=== PATIENT | male | born 1965 | race Caucasian/White ===

== ENCOUNTER 2021-01-01 20:42 | Observation (INO) | payer OTHER, SELFPAY ==
--- NOTE | ~2021-01-01 | XR_ITS ---
EXAMINATION: XR retrograde pyelo w/stent BI EXAM DATE: 01/02/2021 08:20 INDICATION: Bilateral stent placement. Bilateral ureteral stones, obstructive nephropathy. TECHNIQUE: Fluoroscopy used during XR retrograde pyelo w/stent BI performed by Melisa Bowens, urologist. The radiologist Akhil Walter M.D. dictating this report of the image(s) available was n ot present for the procedure. Total fluoroscopic time of 643 seconds. The DAP for this procedure wa s 10,074 radcm2. A total of 8 images sent to PACS from the exam. FINDINGS: Right ureter was cannulated and injected, subsequent ureteral stent was placed. The left u reter was then cannulated and injected, stent placements ureter as well. There is mild to moderate le ft hydroureteronephrosis. Correlate with procedure note. IMPRESSION: Mild to moderate left hydronephrosis. Bilateral stents in position. Reviewed, dictated and finalized at location A.
--- NOTE | ~2021-01-01 | CT_ITS ---
EXAMINATION: CT abdomen pelvis wo con DATE: 01/01/2021 22:36 INDICATION: Prior nephrolithiasis presenting with right flank pain. TECHNIQUE: Computed tomography (CT) of the abdomen and pelvis was performed without intravenous contr ast. Automated exposure control and iterative reconstruction technique were employed. The dose-length product was 204.12 mGy-cm. COMPARISON: None FINDINGS: Mild dependent and discoid atelectasis in the bilateral lower lobes. Heart size is normal. No pericar dial or pleural effusion. Mild diffuse hepatic steatosis. Gallbladder, spleen, pancreas and bilateral adrenal glands are normal. 6 x 8 mm obstructing stone in the mid left ureter resulting in mild to moderate left hydroureteroneph rosis. There is also a 2 mm likely partially obstructing stone in the distalmost right ureter within 1 cm of the ureterovesicular junction with mild right hydroureteronephrosis. Additional 2 mm stone at the interpolar region of the right kidney. 3.2 cm exophytic cyst arising posteriorly from the upper pole of the left kidney. Asymmetric mild right perinephric and periureteral stranding. There is mild colonic diverticulosis with a sigmoid predominance. There is no adjacent inflammatory change to suggest diverticulitis. Small bowel and appendix are normal. Bladder is normal. No free in traperitoneal gas or fluid. No pathologically enlarged abdominal or pelvic lymphadenopathy. Mild thor acolumbar spondylosis. Anterior bridging osteophytes at the bilateral sacral iliac joints. Mild bilat eral hip osteoarthritis. IMPRESSION: 1. Bilateral nephrolithiasis with at least partially obstructing 2 mm stone at the distalmost right u reter with mild right hydroureteronephrosis and larger obstructing 6 x 8 mm mid left ureteral stone w ith moderate left hydroureteronephrosis. Reviewed, dictated and finalized at location A. IMPRESSION: 1. Bilateral nephrolithiasis with at least partially obstructing 2 mm stone at the distalmost right ureter with mild right hydroureteronephrosis and larger ob structing 6 x 8 mm mid left ureteral stone with moderate left hydroureteronephr osis.
[2021-01-01 21:01] VITALS: BP 157/93; PULSE 68; RESP 18; O2SAT 96
[2021-01-01 22:02] VITALS: BP 145/95; PULSE 65; RESP 18; O2SAT 98
--- NOTE | 2021-01-01 22:20 | ED.GENADULT ---
HPI - General Adult General Chief complaint: Abdominal Pain Stated complaint: right flank pain Time Seen by Provider: 01/01/21 21:59 History of Present Illness HPI narrative: Patient 55-year-old gentleman who presents the emergency department chief complaint of right-sided flank pain. The patient states over the last several days he has been having pain in his right flank area patient states he believes is passed 2 kidney stones at home over the last several days and states that now is still having pain pain on the right side patient states that he had no vomiting reports that currently the pain is about a 2 but it was 6 urinate earlier today patient reports that the pain is not improved by anything reports its worsened by itself without any worsening affect. Related Data Allergies Allergy/AdvReac Type Severity Reaction Status Date / Time No Known Allergies Allergy Verified 01/01/21 22:20 Review of Systems Review of Systems: Narrative: A 10 system review of systems was completed on the patient and is negative except for what is stated in the HPI. Nursing and ancillary documentation was reviewed. PMFSH Social History Social History Gender identity (if verbalized by the patient): Male Comments Past medical history significant for kidney stones Social history patient denies illicit drug Exam Narrative: Exam Narrative: GENERAL: Well-appearing, well-nourished, and in no acute distress. HEAD: Normocephalic, atraumatic. EYES: PERRLA and EOMI. ENT: Nares clear, no rhinorrhea or epistaxis. Mucous membranes moist. NECK: Supple. CHEST: Clear to auscultation. No respiratory distress. HEART: Regular rate and rhythm. No murmur heard. Normal peripheral pulses. ABDOMEN: Soft, nontender, nondistended, normal active bowel sounds. EXTREMITIES: Normal range of motion. No edema. SKIN: Warm, dry, no rash. NEURO: No focal deficits. Alert and oriented x3. PSYCH: Normal mood and affect. Course Vital Signs Vital signs: Vital Signs Pulse Rate 68 01/01/21 21:01 Respiratory Rate 18 01/01/21 21:01 Blood Pressure 157/93 H 01/01/21 21:01 Pulse Oximetry 96 01/01/21 21:01 Pulse Rate 65 01/01/21 22:02 Respiratory Rate 18 01/01/21 22:02 Blood Pressure 145/95 H 01/01/21 22:02 Pulse Oximetry 98 01/01/21 22:02 Medical Decision Making Vital Signs Vital Signs: Vital Signs Pulse Rate 68 01/01/21 21:01 Respiratory Rate 18 01/01/21 21:01 Blood Pressure 157/93 H 01/01/21 21:01 Pulse Oximetry 96 01/01/21 21:01 Pulse Rate 65 01/01/21 22:02 Respiratory Rate 18 01/01/21 22:02 Blood Pressure 145/95 H 01/01/21 22:02 Pulse Oximetry 98 01/01/21 22:02 Lab Data Result diagrams: 01/01/21 22:18 01/01/21 22:18 Labs: Lab Results 01/01/21 01/01/21 01/01/21 Range/Units 22:18 22:18 22:18 WBC 17.0 H (4.5-10.0) K/mm3 RBC 4.82 (4.6-6.20) M/mm3 Hgb 15.7 (14.0-18.0) g/dL Hct 45.2 (42.0-52.0) % MCV 93.8 (80-100) fl MCH 32.6 (26-34) pg MCHC 34.7 (32-36) g/dl RDW 11.9 (11.5-14.5) % Plt Count 195 (150-375) k/mm3 MPV 10.3 (7.4-10.4) fl Immature Gran % (Auto) 0.4 (0-0.5) % Neut % (Auto) 72.8 (45.5-73.1) % Lymph % (Auto) 14.3 L (18.3-44.2) % [place] % (Auto) 11.7 H (2.6-8.5) % Eos % (Auto) 0.5 (0-4.4) % Baso % (Auto) 0.3 (0.2-1.2) % Lymph # (Auto) 2.44 (0.9-3.2) K/mm3 [place]ard # (Auto) 2.0 H (0.1-0.6) K/mm3 Eos # (Auto) 0.1 (0-0.3) K/mm3 Baso # (Auto) 0.1 (0.0-0.1) K/mm3 Abs Immat Gran (auto) 0.06 H (0.00-0.031) K/mm3 Absolute Neuts (auto) 12.4 H (1.3-6.7) K/mm3 Absolute Nucleated RBC 0.0 (0.0-0.012) K/mm3 Nucleated RBC % 0.0 (0.0-0.2) % Sodium 139 (137-145) mmol/L Potassium 4.0 (3.4-5.0) mmol/L Chloride 103 (98-107) mmol/L Carbon Dioxide 28 (22-30) mmol/L Anion Gap 8
[2021-01-01] MEDS: SODIUM CHLORIDE 0.9% IV 1,000 ML 999 ML IV CONT (22:21)
[2021-01-01] MEDS: ONDANSETRON INJ 4 MG/2 ML VIAL IV PUSH (22:21)
[2021-01-01] MEDS: MORPHINE SULFATE (*CRX) 4 MG/ML INJ IV PUSH (22:22)
[2021-01-01 22:24] LABS: Basophils Absolute Auto 0.1 K/mm3 (0.0-0.1); Basophils Percent Auto 0.3 % (0.2-1.2); Eosinophils Absolute Auto 0.1 K/mm3 (0-0.3); Eosinophils Percent Auto 0.5 % (0-4.4); Hematocrit 45.2 % (42.0-52.0); Hemoglobin 15.7 g/dL (14.0-18.0); Immature Granulocyte Absolute 0.06 K/mm3 (0.00-0.031); Immature Granulocyte Percent A 0.4 % (0-0.5); Lymphocytes Absolute Auto 2.44 K/mm3 (0.9-3.2); Lymphocytes Percent Auto 14.3 % (18.3-44.2); Mean Corpuscular HGB Conc 34.7 g/dl (32-36); Mean Corpuscular Hemoglobin 32.6 pg (26-34); Mean Corpuscular Volume 93.8 fl (80-100); Mean Platelet Volume 10.3 fl (7.4-10.4); Monocytes Percent Auto 11.7 % (2.6-8.5); Neutrophils Absolute Auto 12.4 K/mm3 (1.3-6.7); Neutrophils Percent Auto 72.8 % (45.5-73.1); Platelet Count Result 195 k/mm3 (150-375); Red Blood Count 4.82 M/mm3 (4.6-6.20); Red Cell Distribution Width 11.9 % (11.5-14.5)
[2021-01-01 22:28] LABS: Add Urine Microscopic? YES; Appearance Urine Clear (Clear); Bilirubin Urine Negative (Negative); Blood Urine 2+ (Negative); Color Urine Straw (Yellow); Glucose Urine UA Negative (Negative); Ketones Urine Negative (Negative); Leukocyte Esterase Ur Trace LEU/UL (Negative); Mucus Urine Rare /lpf; Nitrate Urine Negative (Negative); Protein Urine Negative (Negative); RBC Urine 0-2 /hpf (0-2); Specific Grav Ur 1.006 (1.001-1.035); Urobilinogen Urine Negative mg/dL (<2.0)
[2021-01-01 22:34] LABS: Alanine Aminotransferase 26 U/L (4-50); Albumin Level 4.2 g/dL (3.5-5.1); Alkaline Phosphatase 91 U/L (38-126); Anion Gap 8 mmol/L (8-16); Aspartate Amino Transferase 31 U/L (17-59); Bilirubin,Total 0.9 mg/dL (0.2-1.3); Blood Urea Nitrogen 16 mg/dL (9-20); Calcium 9.7 mg/dL (8.4-10.2); Carbon Dioxide 28 mmol/L (22-30); Chloride 103 mmol/L (98-107); Estimated CRCL calculation 32 ml/min; Estimated Glomerular Filt Rate 28; Glucose 121 mg/dL (75-110); Lipase 33 U/L (23-300); Sodium 139 mmol/L (137-145)
[2021-01-01] MEDS: HYDROmorphone HCL INJ (*CRX) 1 MG/ML SYR IV PUSH (23:21)
[2021-01-02] VITALS (17 sets, daily range): BP systolic 93–149; BP diastolic 53–87; PULSE 57–77; RESP 10–21; TEMP 35.8–36.8; O2SAT 93–100; BMI 31.8
--- NOTE | 2021-01-02 00:33 | PC.NURSE ---
Called report to Kanika PATEL on Medical. Was told that the room was being cleaned and RN will call back when room is ready.
--- NOTE | 2021-01-02 01:00 | ADMGEN ---
This patient, Tino Delgadillo, was admitted to 2 Medical Room 258-01 @ 0055. Patient/family oriented to hospital policies and general routines including ID bracelet, bed and alarms, visiting hours, pain management, procedures, bathroom and other care routines, personal items, smoking policy, room service/diet, and visiting hours. Information on how to activate the Rapid Response Team has been discussed. Patient/Family are encouraged to report perceived risks to care and to ask questions if they do not understand what they are told or what they should do.
[2021-01-02] MEDS: SODIUM CHLORIDE 0.9% IV 1,000 ML 125 ML IV CONT ×2 (01:07→13:18)
--- NOTE | 2021-01-02 01:22 | PM.IMHP ---
H&P: HPI History of Present Illness Date/Time: 01/02/21 01:22 Chief Complaint: Flank pain Narrative: This is a 55-year-old male with known significant past medical history patient presented to the emergency room after right flank pain for the last 2-3 days patient believes that he might have passed to a stones at home but this time the pain has been progressively getting worse over the period of the last day or so no fevers no rigors no chills no nausea no vomiting no diarrhea no melena no hematemesis no hematochezia no hematuria. Preliminary workup was significant for creatinine elevated at 2.[address] of abdomen and pelvis was significant for kidney stones with bilateral hydronephrosis with stones present in the ureters. Review of Systems Review of Systems: Narrative: Right flank pain Constitutional: Constitutional: Denies chills, Denies fever(s) and Denies malaise Eyes: Eyes: Denies change in vision ENT: Denies nasal congestion, Denies nasal discharge and Denies nasal obstruction Cardiovascular: Cardiovascular: Denies chest pain, Denies irregular heart rhythm, Denies radiating jaw, neck or arm pain, Denies palpitations, Denies dyspnea and Denies dyspnea on exertion Respiratory: Respiratory: Denies cough, Denies dyspnea and Denies wheezing Gastrointestinal: Gastrointestinal: Denies diarrhea and Denies vomiting Genitourinary: Genitourinary: Reports flank pain (Right-sided) Musculoskeletal: Musculoskeletal: Reports no additional musculoskeletal complaints Integumentary/Breasts: Skin/Breast: Reports system reviewed and no additional complaints, except as docu Neurologic: Denies focal weakness and Denies Sensory deficit (Neuro) Psychiatric: Psychiatric: Reports no additional psychiatric complaints Endocrine: Endocrine: Reports no additional endocrine complaints Hematologic/Lymphatic: Hematologic/Lymphatic: Reports no additional hematologic/lymphatic complaints Allergic/Immunologic: Allergic/Immunologic: Reports no additional allergic/immunologic complaints [facility] Family History Family History (Updated 01/02/21 @ 01:04 by Susie Caban RN) Unknown Unknown family medical history Social History Social History Smoking status: Never smoker Alcohol intake: current Drinks per week: 1 Substance use: never Substance use type: does not use Gender identity (if verbalized by the patient): Male Spiritual care concerns: No Meds Home Medications and Allergies Home Medications Medication Instructions Recorded Confirmed Type No Home Medications 01/02/21 01/02/21 History Allergies Allergy/AdvReac Type Severity Reaction Status Date / Time No Known Allergies Allergy Verified 01/01/21 22:20 Vital Signs Vital Signs - 24 hr 01/01/21 21:01 01/01/21 22:02 01/02/21 00:13 Temperature Pulse Rate 68 65 61 Respiratory Rate 18 18 18 Blood Pressure 157/93 H 145/95 H 149/87 H Pulse Oximetry 96 98 94 01/02/21 00:50 01/02/21 01:02 Temperature 96.4 F L Pulse Rate 63 64 Respiratory Rate 16 16 Blood Pressure 124/78 Pulse Oximetry 97 95 Exam Narrative: Exam Narrative: Sitting in [facility] Const: General: comfortable, no acute distress, well developed, alert, awake, well groomed and other (Well-appearing) Nutritional Appearance: average body habitus Orientation/consciousness: patient oriented x3 HENMT: Head: normal to inspection, normocephalic and atraumatic Ears: hearing grossly normal bilaterally General nose exam: Normal external nose present Face and sinus: normal facial exam Mouth: Yes Normal oral and palatal mucosa present Eyes: General: appearance normal, both eyes and all related structures Sclera: sclerae normal Pupils: Equal, round and reactive pupils present EOM: EOMs intact bilaterally Neck: Neck: full ROM, no lymphadenopathy and no JVD Thyroid: thyroid normal Lymphatic: no lymphadenopathy noted Resp: Effo
[2021-01-02] MEDS: HYDROmorphone HCL INJ (*CRX) 1 MG/ML SYR IV PUSH (05:46)
[2021-01-02 05:48] LABS: Basophils Percent Auto 0.1 % (0.2-1.2); Eosinophils Percent Auto 0.1 % (0-4.4); Hematocrit 41.7 % (42.0-52.0); Hemoglobin 14.3 g/dL (14.0-18.0); Immature Granulocyte Absolute 0.07 K/mm3 (0.00-0.031); Immature Granulocyte Percent A 0.5 % (0-0.5); Lymphocytes Absolute Auto 1.92 K/mm3 (0.9-3.2); Lymphocytes Percent Auto 12.4 % (18.3-44.2); Mean Corpuscular HGB Conc 34.3 g/dl (32-36); Mean Corpuscular Hemoglobin 32.5 pg (26-34); Mean Corpuscular Volume 94.8 fl (80-100); Mean Platelet Volume 10.3 fl (7.4-10.4); Monocytes Absolute Auto 1.7 K/mm3 (0.1-0.6); Monocytes Percent Auto 10.8 % (2.6-8.5); Neutrophils Absolute Auto 11.8 K/mm3 (1.3-6.7); Neutrophils Percent Auto 76.1 % (45.5-73.1); Platelet Count Result 190 k/mm3 (150-375); Red Cell Distribution Width 11.9 % (11.5-14.5); White Blood Count 15.5 K/mm3 (4.5-10.0)
[2021-01-02 05:59] LABS: Anion Gap 6 mmol/L (8-16); Blood Urea Nitrogen 15 mg/dL (9-20); Calcium 8.8 mg/dL (8.4-10.2); Carbon Dioxide 28 mmol/L (22-30); Chloride 106 mmol/L (98-107); Estimated CRCL calculation 34 ml/min; Estimated Glomerular Filt Rate 30; Glucose 128 mg/dL (75-110); Potassium 4.4 mmol/L (3.4-5.0); Sodium 140 mmol/L (137-145)
--- NOTE | 2021-01-02 06:37 | WPDANESEPP ---
Anes - Eval Pre Procedure Procedure: Cystoscopy w/ stents placement Date/Time: 01/02/21 06:37 Surgeon: Elena Preop Diagnosis: Bilateral hydronephrosis Pre Op Diagnosis: Bilateral Obstructing Kidney Stones,Acute Kidn Inj Patient Data Age: 55 Gender: M Height: 1.68 m Weight: 89.4 kg Last Vital Signs Temp 35.9 C L 01/02/21 05:43 Pulse 73 01/02/21 05:43 Resp 16 01/02/21 05:43 BP 132/78 01/02/21 05:43 Pulse Ox 96 01/02/21 05:43 Allergies Allergy/AdvReac Type Severity Reaction Status Date / Time No Known Allergies Allergy Verified 01/01/21 22:20 Home Medications Medication Instructions Recorded Confirmed Type No Home Medications 01/02/21 01/02/21 History Laboratory Tests 01/01/21 01/01/21 01/01/21 22:18 22:18 22:18 WBC 17.0 K/mm3 H K/mm3 (4.5-10.0) RBC 4.82 M/mm3 M/mm3 (4.6-6.20) Hgb 15.7 g/dL g/dL (14.0-18.0) Hct 45.2 % % (42.0-52.0) MCV 93.8 fl fl (80-100) MCH 32.6 pg pg (26-34) MCHC 34.7 g/dl g/dl (32-36) RDW 11.9 % % (11.5-14.5) Plt Count 195 k/mm3 k/mm3 (150-375) MPV 10.3 fl fl (7.4-10.4) Immature Gran % (Auto) 0.4 % % (0-0.5) Neut % (Auto) 72.8 % % (45.5-73.1) Lymph % (Auto) 14.3 % L % (18.3-44.2) Snyder % (Auto) 11.7 % H % (2.6-8.5) Eos % (Auto) 0.5 % % (0-4.4) Baso % (Auto) 0.3 % % (0.2-1.2) Lymph # (Auto) 2.44 K/mm3 K/mm3 (0.9-3.2) Snyder # (Auto) 2.0 K/mm3 H K/mm3 (0.1-0.6) Eos # (Auto) 0.1 K/mm3 K/mm3 (0-0.3) Baso # (Auto) 0.1 K/mm3 K/mm3 (0.0-0.1) Abs Immat Gran (auto) 0.06 K/mm3 H K/mm3 (0.00-0.031) Absolute Neuts (auto) 12.4 K/mm3 H K/mm3 (1.3-6.7) Absolute Nucleated RBC 0.0 K/mm3 K/mm3 (0.0-0.012) Nucleated RBC % 0.0 % % (0.0-0.2) Sodium 139 mmol/L mmol/L (137-145) Potassium 4.0 mmol/L mmol/L (3.4-5.0) Chloride 103 mmol/L mmol/L (98-107) Carbon Dioxide 28 mmol/L mmol/L (22-30) Anion Gap 8 mmol/L mmol/L (8-16) BUN 16 mg/dL mg/dL (9-20) Creatinine 2.40 mg/dL H mg/dL (0.7-1.3) Estim Creat Clear Calc 32 ml/min ml/min Estimated GFR 28 L (59 - ) Glucose 121 mg/dL H mg/dL (75-110) Calcium 9.7 mg/dL mg/dL (8.4-10.2) Total Bilirubin 0.9 mg/dL mg/dL (0.2-1.3) AST 31 U/L U/L (17-59) ALT 26 U/L U/L (4-50) Alkaline Phosphatase 91 U/L U/L (38-126) Total Protein 8.0 g/dL g/dL (6.3-8.2) Albumin 4.2 g/dL g/dL (3.5-5.1) Lipase 33 U/L U/L (23-300) Urine Color Straw (Yellow) Urine Appearance Clear (Clear) Urine pH 6.0 (5.0-9.0) Ur Specific [place] 1.006 (1.001-1.035) Urine Protein Negative mg/dL mg/dL (Negative) Urine Glucose (UA) Negative mg/dL mg/dL (Negative) Urine Ketones Negative mg/dL mg/dL (Negative) Ur Blood (Man) 2+ H (Negative) Urine Nitrate Negative (Negative) Urine Bilirubin Negative (Negative) Urine Urobilinogen Negative mg/dL mg/dL (<2.0) Leukocyte Esterase Rfl Trace KENYETTA/UL H KENYETTA/UL (Negative) Urine RBC 0-2 /hpf /hpf (0-2) Urine WBC 7-9 /hpf H /hpf Urine Mucus Rare /lpf /lpf 01/02/21 01/02/21 05:34 05:34 WBC 15.5 K/mm3 H K/mm3 (4.5-10.0) RBC 4.40 M/mm3 L M/mm3 (4.6-6.20) Hgb 14.3 g/dL g/dL (14.0-18.0) Hct 41.7 % L % (42.0-52.0) MCV 94.8 fl fl (80-100) MCH 32.5 pg pg (26-34) MCHC 34.3 g/dl g/dl (32-36) RDW 11.9 % % (11.5-14.5) Plt Count 190 k/mm3 k/mm3 (150-375) MPV 10.3 fl fl (7.4-10.4) Immature Gran % (Auto) 0.5
--- NOTE | 2021-01-02 07:22 | WPDURCON ---
Assessment and Plan Assessment and plan (1) Bilateral kidney stones: Code(s): N20.0 - Calculus of kidney Status: Acute Assessment and Plan: Bilateral ureter stone s with CHRISTEN plan for cystoscopy, b/l RPG and bl stent placement. risks, benefits, alternatives, nature of procedure and potential complications discussed. present risks including but not limited to bleeding, infection, trauma to surrounding/adjacent structures, damage to urethra, bladder , ureters. The side effects and temporary nature of the stents were emphasized including, irritative voiding symptoms, hematuria, pain similar to stone pain, and the fact we are not treating the stones today, and he will need addtional procedure to treat stones, and the risks of anesthesia, including but not limited to DVT, PE, CA stroke and siabiltiy. We discussed possible PCN by IR, and need for additional procedures to remove stents . he and verbalized understanding and agreeable to proceed all ? answered , they asked pertinent questions. (2) Acute kidney injury: Code(s): N17.9 - Acute kidney failure, unspecified Status: Acute Assessment and Plan: likely due to b/l obstruction follow serial Cr Urology Consult Note HPI Date Seen: 01/02/21 Requesting Physician: Maria Isabel Camacho PA-C Primary Care Provider: Herson Sanchez, ISABELLA Consult Narrative Narrative: Tino Delgadillo is a 55 year old male pmhx of nephrolithiasis, admitted from ER with bilateral flank pain. He had some nausea, no fever or chills. he has passed a couple stones over the past year. he has never seen a urologist before. Pain is colicky, improved on narcotics. He had CT in ER which shows bilateral ureter stones, his Cr is elevated. Review of Systems Review of Systems: All systems reviewed & are unremarkable except as noted in HPI and below Constitutional: Constitutional: Reports as per HPI ENT: Reports Normal hearing present and Denies dry mouth Cardiovascular: Cardiovascular: Reports no additional cardiovascular complaints Respiratory: Respiratory: Reports no additional respiratory complaints Gastrointestinal: Gastrointestinal: Reports as per HPI Genitourinary: Genitourinary: Reports as per HPI Musculoskeletal: Musculoskeletal: Reports as per HPI Integumentary/Breasts: Skin/Breast: Reports system reviewed and no additional complaints, except as docu Neurologic: Reports system reviewed and no additional complaints, except as documented Endocrine: Endocrine: Reports no additional endocrine complaints Hematologic/Lymphatic: Hematologic/Lymphatic: Reports no additional hematologic/lymphatic complaints Allergic/Immunologic: Allergic/Immunologic: Reports no additional allergic/immunologic complaints PMF Family History Family History Unknown Unknown family medical history Social History Social History Smoking status: Never smoker Alcohol intake: current Drinks per week: 1 Substance use: never Substance use type: does not use Gender identity (if verbalized by the patient): Male Spiritual care concerns: No Meds Home Medications and Allergies Home Medications Medication Instructions Recorded Confirmed Type No Home Medications 01/02/21 01/02/21 History Allergies Allergy/AdvReac Type Severity Reaction Status Date / Time No Known Allergies Allergy Verified 01/01/21 22:20 Vital Signs Vital Signs - 24 hr 01/01/21 21:01 01/01/21 22:02 01/02/21 00:13 Temperature Pulse Rate 68 65 61 Respiratory Rate 18 18 18 Blood Pressure 157/93 H 145/95 H 149/87 H Pulse Oximetry 96 98 94 01/02/21 00:50 01/02/21 01:02 01/02/21 05:43 Temperature 35.8 C L 35.9 C L Pulse Rate 63 64 73 Respiratory Rate 16 16 16 Blood Pressure 124/78 132/78 Pulse Oximetry 97 95 96 Exam Const: General: cooperativ
--- NOTE | 2021-01-02 07:27 | P.PNAN_ITS ---
Anes - Eval Final PreProcedure Day of Procedure 01/02/21 07:27 Patient weight: obese Heart: regular rate and rhythm Lungs: clear to auscultation Airway: Mallampati scale class II Neurological: alert and oriented Last oral intake: >/= 8 hours ASA classification: II Emergent: no Anesthetic plan: proceed Anesthesia type and monitoring: general LMA and standard monitoring Informed Consent: The patient's anesthetic plan and its attendant risks and reid efits were discussed with the patient/family/POA. Questions were solicited and answers provided to the satisfaction of the patient/family/POA.
[2021-01-02] MEDS: LACTATED RINGERS 1,000 ML 30 ML IV CONT ×2 (07:30→08:20)
--- NOTE | 2021-01-02 07:30 | WPDHPUPDATE1 ---
History and Physical Update Update Date/Time: 01/02/21 07:30 History and Physical has been reviewed, including an updated exam of the patient. There are NO changes in the patient's condition. Risks, benefits, and alternatives have been discussed and questions answered. Patient agrees to proceed with procedure.
[2021-01-02] MEDS: LIDOCAINE HCL 2% GEL UROJET 10 ML PKG MUCOUS MEM (07:45)
--- NOTE | 2021-01-02 08:28 | W.PM.PROC2 ---
Procedure Note - Detailed Date of Procedure 01/02/21 Pre-op Diagnosis Bilateral Obstructing Kidney Stones,Acute Kidn Inj Post-op Diagnosis same Procedure Performed cystoscopy, bilateral retrograde pyelograms, bilateral ureteral stent placement Surgeon Angel Parker MD Anesthesia general Indications bilateral obstructive stones, CHRISTEN Findings impacted bilateral stones, left mid ureter, right distal ureter Description of Procedure Patient was brought back to the operating room, he was given general anesthesia via LMA. He was prepped and draped in standard surgical fashion in the dorsal lithotomy position with Betadine scrub to the genitalia. SCD boots were on and functional preoperatively. He is on IV rocephin on the floor and received last p.m. After appropriate timeout and appropriate radiologic films were displayed, a 22 Fr cystoscope was inserted into the urethra. The urethra was endoscopically normal, prostate was non obstructive. He had no tumor, lesion, mass or stone in the urinary bladder. He had single orthotopic placed ureteral orifices. No efflux was seen. I attempted to place a Bentson wire into the right u/o. The wire would not pass the stone in the distal ureter. An open ended 5 Fr catheter was placed, a retrograde pyelogram was performed to outline the ureter and collecting system, it showed mild hydronephrosis and hydroureter, i was able to pass an angle tipped glide wire past this and advanced the open ended catheter into the kidney, a hydronephrotic drip of urine was obtained. The angle tipped wire was removed and a Bentson wire was placed through the open ended catheter, the open ended catheter was remove and a 6 Fr variable length stent was placed Curl was seen in the kidney and in the urinary bladder. I then turned my attention to the left ureter. Stone was seen in the mid ureter on hazardous substances engineer fluoroscopy. Open ended catheter was placed in the left u/o. A wire was placed, it would not pass the stone, retrograde pyelogram was performed to outline the ureter and collecting system, it showed an impacted stone and moderate hydronephrosis and hydroureter. I used an angle tipped glidewire and was able to advance this into the upper pole. The 6 Fr open ended would not pass the impacted stone, therefore I used a 4.8 Fr variable length stent , I was able to navigate this into the renal pelvis, good curl was seen fluoroscopically in the kidney and both fluoroscopically and endoscopically in the bladder. The bladder was drained, all instruments and wires were removed. No immediate complications. I discussed findings and followup with family, all ? answered Implants right 6 Fr variable length stent, left 4.8 variable length stent Estimated Blood Loss 0 Urine Output 450 Drains No Packing No Pathology none sent Complications No immediate complications Condition stable Disposition floor
--- NOTE | 2021-01-02 08:51 | SUR.PHASEI ---
O2 removed at 0850.
--- NOTE | 2021-01-02 09:35 | SUR.PHASEI ---
Patient had the sensation like he had to pee but couldn't in the urinal while in PACU.
--- NOTE | 2021-01-02 13:16 | PM.IMPN ---
Progress Note: A&P Assessment and Plan (1) Bilateral kidney stones: Code(s): N20.0 - Calculus of kidney Status: Acute Assessment and Plan: CT a/p showed bilateral nephrolithiasis with partially obstructing 2 mm stone. He is s/p cystoscopy and bilateral ureteral stent placement today. Appreciate urology consultation He will need definitive stone management at a later date Analgesics and antiemetics available as needed for pain (2) Hydroureteronephrosis: Code(s): N13.30 - Unspecified hydronephrosis Status: Acute Assessment and Plan: Mild right hydroureteronephrosis and moderate left. Plan as above (3) Acute kidney injury: Code(s): N17.9 - Acute kidney failure, unspecified Status: Acute Assessment and Plan: Suspect obstructive etiology secondary to stone. Creatinine at presentation was 2.4 with minimal improvement today to 2.3 Continue gentle IV fluids Monitor renal function closely Anticipate improvement following stent placement (4) Abnormal urinalysis: Code(s): R82.90 - Unspecified abnormal findings in urine Status: Acute Assessment and Plan: Urinalysis abnormal upon presentation. He endorses flank pain with urination. Continue IV Ceftriaxone per urology recommendations Await results of urine culture Subjective Date/time seen: 01/02/21 13:16 Interval history: Date of service: 01/02/21 Tino Delgadillo is a 55-year-old male with no significant past medical history who has had kidney stones in the past and is seen in follow-up for bilateral nephrolithiasis. He is status post cystoscopy with bilateral ureteral stent placement. He tolerated the procedure well. He is feeling well at this time with no pain. He does note some right flank pain with urination. Denies dysuria. No hematuria, urgency, or frequency. No flank pain, groin pain, or back pain. He has been eating well. Denies nausea or vomiting. No fevers or chills. No shortness of breath, cough, or chest pain. Denies headaches. No dizziness or lightheadedness. He has no other concerns at this time. Review of Systems Review of Systems: All systems reviewed & are unremarkable except as noted in HPI and below Exam Narrative: Exam Narrative: Mr. Delgadillo is a well-nourished, well-appearing 55-year-old male who is lying semi-recumbent in bed. He appears comfortable and is in NARD. Neuro: awake, alert and oriented x4, speech clear, no focal neuro deficits noted HEENMT: normocephalic, atraumatic, EOMI, sclerae anicteric, moist oral mucosa, tongue midline, nares patent Neck: supple, no lymphadenopathy Respiratory: clear to auscultation bilaterally, nonlabored breathing Cardio: regular rate, regular rhythm with S1-S2 Abdomen: nondistended, normoactive bowel sounds, soft, nontender to palpation, no rigidity or guarding : No CVA tenderness Extremities: no edema, erythema, cyanosis, clubbing, or tenderness to palpation, DP pulses 2+ bilaterally Skin: no rashes or lesions, warm and dry Psych: appropriate mood and affect, judgment and insight intact Objective Data Vital Signs Vital Signs: Vital Signs - 24 hr 01/01/21 21:01 01/01/21 22:02 01/02/21 00:13 Temperature Pulse Rate 68 65 61 Respiratory Rate 18 18 18 Blood Pressure 157/93 H 145/95 H 149/87 H Pulse Oximetry 96 98 94 01/02/21 00:50 01/02/21 01:02 01/02/21 05:43 Temperature 96.4 F L 96.7 F L Pulse Rate 63 64 73 Respiratory Rate 16 16 16 Blood Pressure 124/78 132/78 Pulse Oximetry 97 95 96 01/02/21 08:19 01/02/21 08:32 01/02/21 08:45 Temperature 97.5 F L Pulse Rate 64 70 72 Respiratory Rate 10 L 17 13 Blood Pressure 93/56 L 93/63 L 115/72 Pulse Oximetry 94 99 100 01/02/21 09:00 01/02/21 09:15 01/02/21 09:30 Temperature Pulse Rate 66 66 57 L Respiratory Rate 21 H 12 12 Blood Pressure 113/74 114/75 113/77 Pulse Oximetry 94 94 94 01/02/21 10:00 01/02/21 10:15 0
--- NOTE | 2021-01-02 14:37 | PCRCNOTE ---
Spoke with Pt. about wearing CPAP; Pt. states he doesn't think he wants to wear one while he is here. Pt. states if he changes his mind he will have his bring in his nasal pillows so he can use them with our machine and let us know he wants to wear one.
[2021-01-03] MEDS: SODIUM CHLORIDE 0.9% IV 1,000 ML 85 ML IV CONT (00:42)
[2021-01-03 05:44] LABS: Hematocrit 37.7 % (42.0-52.0); Hemoglobin 12.9 g/dL (14.0-18.0); Mean Corpuscular HGB Conc 34.2 g/dl (32-36); Mean Corpuscular Hemoglobin 32.9 pg (26-34); Mean Corpuscular Volume 96.2 fl (80-100); Mean Platelet Volume 10.5 fl (7.4-10.4); Platelet Count Result 179 k/mm3 (150-375); Red Blood Count 3.92 M/mm3 (4.6-6.20); White Blood Count 13.6 K/mm3 (4.5-10.0)
[2021-01-03 06:00] VITALS: BP 114/67; PULSE 65; RESP 18; TEMP 36.6; O2SAT 97
[2021-01-03 06:03] LABS: Anion Gap 6 mmol/L (8-16); Blood Urea Nitrogen 18 mg/dL (9-20); Calcium 8.9 mg/dL (8.4-10.2); Carbon Dioxide 27 mmol/L (22-30); Chloride 108 mmol/L (98-107); Estimated CRCL calculation 55 ml/min; Estimated Glomerular Filt Rate 52; Glucose 116 mg/dL (75-110); Sodium 141 mmol/L (137-145)
--- NOTE | 2021-01-03 09:42 | WPDUROPN2 ---
Progress Note: A&P Assessment and Plan (1) Hydroureteronephrosis: Code(s): N13.30 - Unspecified hydronephrosis Status: Acute Assessment and Plan: s/p b/l stent placement he is clinically improving. ok to discharge today from perspective with close followup to schedule surgery (2) Bilateral kidney stones: Code(s): N20.0 - Calculus of kidney Status: Acute Assessment and Plan: he has b/l ureter stones, these will need treatment in next 1-2 weeks. likely with b/l ureteroscopy. I will have him followup with Dr Chauhan or Cuca next week to have these stones treated, likely with ureteroscopy. Pt understands the stents are temporary and need removal. He voiced understanding. (3) Acute kidney injury: Code(s): N17.9 - Acute kidney failure, unspecified Status: Acute Assessment and Plan: Cr improved to 1.4, unknown baseline Subjective Subjective Date/Time Seen: 01/03/21 09:42 NAOE. No fevers/chills/CP or SOB. Urine has cleared. Pain controlled. mild stent bother primarily on right side. wants to go home Review of Systems Constitutional: Constitutional: Reports no additional constitutional complaints, Denies chills and Denies fever(s) ENT: Reports system reviewed and no additional complaints, except as documented Cardiovascular: Cardiovascular: Reports no additional cardiovascular complaints Respiratory: Respiratory: Reports no additional respiratory complaints Gastrointestinal: Gastrointestinal: Reports no additional gastrointestinal complaints Genitourinary: Genitourinary: Reports as per HPI Musculoskeletal: Musculoskeletal: Reports as per HPI Integumentary/Breasts: Skin/Breast: Reports system reviewed and no additional complaints, except as docu Psychiatric: Psychiatric: Reports no additional psychiatric complaints Hematologic/Lymphatic: Hematologic/Lymphatic: Reports no additional hematologic/lymphatic complaints Exam Const: General: cooperative, healthy appearing, comfortable and no acute distress HENMT: Head: normocephalic and atraumatic Ears: hearing grossly normal bilaterally Eyes: General: appearance normal, both eyes and all related structures Resp: Effort & Inspection: normal respiratory effort, able to speak in complete sentences and no audible wheezes GI: Inspection: normal to inspection GI Palp: No Guarding due to palpation present (GI) : General: Yes no CVA tenderness Skin: General skin exam: normal color and no rashes or lesions noted Objective Data Vital Signs Vital Signs: Vital Signs - 24 hr 01/02/21 10:00 01/02/21 10:15 01/02/21 10:45 Temperature 35.9 C L 36.6 C 36.4 C Pulse Rate 57 L 64 68 Respiratory Rate 18 18 18 Blood Pressure 119/73 127/72 112/64 Pulse Oximetry 96 96 97 01/02/21 11:14 01/02/21 11:45 01/02/21 15:45 Temperature 36.8 C 36.3 C L Pulse Rate 77 63 Respiratory Rate 20 18 Blood Pressure 120/64 105/53 L Pulse Oximetry 93 95 96 01/02/21 21:16 01/03/21 06:00 Temperature 36.6 C 36.6 C Pulse Rate 68 65 Respiratory Rate 16 18 Blood Pressure 120/65 114/67 Pulse Oximetry 96 97 Intake/Output Intake/Output: Intake & Output 12/31/20 01/01/21 01/02/21 01/03/21 23:59 23:59 23:59 23:59 Intake Total 3230 1350 Output Total 900 Balance 2330 1350 Meds/Results Medications: Active Medications Generic Name Dose Route Start Last Admin Trade Name Freq PRN Reason Stop Dose Admin Hydrocodone Bitart/Acetaminophen 1 tab 01/02/21 12:53 Hydrocodone/Acetaminophen (*Crx) 10-325 Mg Tablet PO Q4H PRN Pain Rated 7-10 Sodium Chloride 1,000 mls @ 85 mls/hr 01/01/21 23:30 01/03/21 00:42 Normal Saline Iv IV CONT 85 mls/hr .[id number] HERMINIA Administration Ceftriaxone Sodium/Dextrose 1 gm in 50 mls @ 100 mls/hr 01/03/21 09:00 Rocephin 1 Gm/D5w 50 Ml IVPB Q24H HERMINIA Ondansetron HCl 4 mg 01/01/21 23:26 Ondansetron Inj 4 Mg/2 Ml Vial IV PUSH Q4H PRN
--- NOTE | 2021-01-03 12:55 | PM.DS ---
DS: Admitting Diagnosis Admitting Diagnosis Admitting Diagnosis: Nephrolithiasis DS: Discharge Diagnosis Discharge Diagnosis (1) Bilateral kidney stones: Code(s): N20.0 - Calculus of kidney Status: Acute Assessment and Plan: CT a/p showed bilateral nephrolithiasis with partially obstructing 2 mm stone. He underwent cystoscopy and bilateral ureteral stent placement on 01/02/[address] Parker. He will follow-up with urology as an outpatient for definitive stone management and stent removal. (2) Hydroureteronephrosis: Code(s): N13.30 - Unspecified hydronephrosis Status: Acute Assessment and Plan: Mild right hydroureteronephrosis and moderate left, secondary to obstructing stone. (3) Acute kidney injury: Code(s): N17.9 - Acute kidney failure, unspecified Status: Acute Assessment and Plan: Secondary to obstructive stone. Creatinine at presentation was 2.4 and improved down to 1.4 following stent placement. Anticipate further improvement back to baseline over the next several days. Encouraged adequate oral hydration. (4) Abnormal urinalysis: Code(s): R82.90 - Unspecified abnormal findings in urine Status: Acute Assessment and Plan: Urinalysis abnormal upon presentation. Urine culture was negative. No further treatment with antibiotics warranted. DS: Summary Hospital Course Reason for hospitalization: Kidney stone Hospital Course: Date of admission: 01/02/2021 Date of discharge: 01/03/2021 Tino Delgadillo is a 55-year-old male with a history of prior kidney stones who presented to the emergency department on 01/02/2021 2-3 days with progressive worsening. Upon presentation to the emergency department signs were stable, he was afebrile, white blood cell count was elevated at 17.0, additional CBC within normal limits, creatinine was 2.4 with additional electrolytes stable, urinalysis was abnormal, and CT a/p showed bilateral nephrolithiasis with at least partially obstructing 2 mm stone at the distalmost right ureter with mild right hydroureteronephrosis and larger obstructing 6 x 8 mm mid left ureteral stone with moderate left hydroureteronephrosis. He was admitted to the hospitalist service for further evaluation and management and was seen in consultation by Urology. Please see above for further details. His symptoms improved significantly following his stent placement. He was feeling much better and was felt to be stable for discharge home. He will follow-up with urology as an outpatient. We discussed worrisome signs and symptoms for which to return. He was discharged in hemodynamically stable condition on 01/03/2021 Status at Discharge Functional status at discharge: independent ambulation Overall status at discharge: patient is back to baseline Time Spent with Patient Time attestation: Total time spent providing and/or coordinating discharge services: 45 minutes Time spent: Greater than 30 minutes Exam Narrative: Exam Narrative: Mr. Delgadillo is a well-nourished, well-appearing 55-year-old male who is lying semi-recumbent in bed. He appears comfortable and is in NARD. Neuro: awake, alert and oriented x4, speech clear, no focal neuro deficits noted HEENMT: normocephalic, atraumatic, EOMI, sclerae anicteric, moist oral mucosa, tongue midline, nares patent Neck: supple, no lymphadenopathy Respiratory: clear to auscultation bilaterally, nonlabored breathing Cardio: regular rate, regular rhythm with S1-S2 Abdomen: nondistended, normoactive bowel sounds, soft, nontender to palpation, no rigidity or guarding : No CVA tenderness Skin: no rashes or lesions, warm and dry Psych: appropriate mood and affect, judgment and insight intact DS: Data Data Completed and Pending Labs on day of discharge: Labs from last 24 hours 01/03/21 01/03/21 05:19 05:19 WBC 13.6 H RBC 3.92 L Hgb 12.9 L Hct 37.7 L MCV 96.2 MCH 32.9 MC
== END 2021-01-03 12:45 | disposition home or self-care (01) ==
LOC: ANHED 23:26 → ANH2MED 01-02 00:02
PROVIDERS: Physician Assistant; Urology; Admitting Provider Internal Medicine; Emergency Provider Emergency Medicine; PCP Physician Assistant; Visit Provider Internal Medicine
PROC: (CPT 52352; principal; 2021-01-02 07:30)
DX: N20.2 Calculus of kidney with calculus of ureter (principal); N13.30 Unspecified hydronephrosis; N17.9 Acute kidney failure, unspecified
CPT/HCPCS: 52332; 36415; 74176; 74420; 80048; 80053; 81001; 83690; 85025; 85027; 87086; 96361; 96365; 96374; 96375; 99285; A9270; C1758; C1769; C2617; G0378; J0696; J1100; J1170; J2270; J2370; J2405; J2704; J3010; J7030; J7120; Q9966

== ENCOUNTER 2021-01-06 11:49 | Outpatient (CLI) | payer OTHER, SELFPAY ==
[2021-01-06 12:38] LABS: Prothrombin Time 13.3 Seconds (11.1-14.7)
[2021-01-06 12:39] LABS: Partial Thromboplastin Time 24.1 SECONDS (22.3-36.8)
[2021-01-06 12:41] LABS: EDCOVIDSCREEN Negative (Negative)
== END 2021-01-06 11:50 | disposition home or self-care (01) ==
PROVIDERS: PCP Physician Assistant; Visit Provider Urology
DX: N20.0 Calculus of kidney (principal); Z01.818 Encounter for other preprocedural examination
CPT/HCPCS: 36415; 85610; 85730; 87426; C9803

== ENCOUNTER 2021-01-08 00:19 | Day surgery (SDC) | payer OTHER, SELFPAY ==
[2021-01-06 12:30] VITALS: BMI 29.8
--- NOTE | 2021-01-07 07:18 | P.HP_ITS ---
History of Present Illness History of Present Illness Consent: Risks, benefits, and alternatives have been discussed and questions answered. Patient agrees to proceed with procedure. Chief complaint: bilateral ureteral kidney stones Narrative: Tino Delgadillo is a 55 year old male presented to the emergency department last week with bilateral ureteral calculi (small right distal ureteral calculus and a moderate-size left mid ureteral calculus ). As described in the prior consultation and OR report he underwent cystoscopy with bilateral ureteral stent placement. He now presents for definitive intervention. Review of Systems Cardiovascular: Cardiovascular: Denies chest pain, Denies lightheadedness, Denies palpitations and Denies dyspnea Respiratory: Respiratory: Denies dyspnea Gastrointestinal: Gastrointestinal: Denies diarrhea, Denies nausea and Denies vomiting Genitourinary: Genitourinary: Denies hematuria and Denies dysuria Endocrine: Endocrine: Denies palpitations PMFSH Family History Family History Unknown Unknown family medical history Social History Social History Smoking status: Never smoker Alcohol intake: current Drinks per week: 1 Substance use: never Substance use type: does not use Gender identity (if verbalized by the patient): Male Spiritual care concerns: No Meds Home Medications and Allergies Home Medications Medication Instructions Recorded Confirmed Type glucosamine-chondroitin [Osteo 1 tablet PO BID 01/06/21 01/06/21 History Bi-Flex] omega-3 fatty acids-fish oil [Fish 1 cap PO TID 01/06/21 01/06/21 History Oil] Allergies Allergy/AdvReac Type Severity Reaction Status Date / Time No Known Allergies Allergy Verified 01/06/21 12:16 Exam Const: General: no acute distress Resp: Effort & Inspection: normal respiratory effort GI: Inspection: non-distended GI Palp: No abdominal tenderness and No Guarding due to palpation present (GI) Auscultation: normal bowel sounds Assessment and Plan Assessment and plan (1) Bilateral ureteral calculi: Code(s): N20.1 - Calculus of ureter Status: Acute Assessment and Plan: * Cystoscopy, right ureteroscopy with stone extraction. * Left ureteral ESWL
--- NOTE | ~2021-01-08 | XR_ITS ---
XR abdomen/kub 1V 01/08/2021 07:50 Indication: Preop ESWL Procedure: KUB Comparison: No prior studies for comparison. Findings: There are bilateral internal ureteral stents in expected position. There is a small 2-3 mm right renal stone. There are pelvic phleboliths. Bowel gas pattern is nonobstructive. Impression: 1: Right nephrolithiasis. Reviewed, dictated and finalized at location A. Impression: 1: Right nephrolithiasis.
--- NOTE | 2021-01-08 06:40 | WPDHPUPDATE1 ---
History and Physical Update Update Date/Time: 01/08/21 06:40 History and Physical has been reviewed, including an updated exam of the patient. There are NO changes in the patient's condition. Risks, benefits, and alternatives have been discussed and questions answered. Patient agrees to proceed with procedure.
--- NOTE | 2021-01-08 07:42 | WPDANESEPPF ---
Anes - Initial Pre Proc Eval Procedure: Operation Date: 01/08/21 09:30 Proposed Procedures p Left Extracorporeal Shock Wave Lithotripsy - Andrea Thurman MD s Cystoscopy, Right Ureteroscopy, Right Ureteral Stone Extraction - Andrea Thurman MD Date/Time: 01/08/21 07:42 Surgeon: Andrea Thurman MD Pre Op Diagnosis: bilateral ureteral kidney stones Patient Data Age: 55 Gender: M Height: 1.68 m Weight: 83.95 kg Allergies Allergy/AdvReac Type Severity Reaction Status Date / Time No Known Allergies Allergy Verified 01/06/21 12:16 Home Medications Medication Instructions Recorded Confirmed Type glucosamine-chondroitin [Osteo 1 tablet PO BID 01/06/21 01/06/21 History Bi-Flex] omega-3 fatty acids-fish oil [Fish 1 cap PO TID 01/06/21 01/06/21 History Oil] Patient hx anesthesia problems: none Family hx anesthesia problems: none PMFSH Past Medical History Medical History (Updated 01/08/21 @ 07:43 by Nakul Mobley MD) Bilateral ureteral calculi IDA on CPAP Overweight (BMI 25.0-29.9) Family History Family History Unknown Unknown family medical history Social History Social History Smoking status: Never smoker Alcohol intake: current Drinks per week: 1 Substance use: never Substance use type: does not use Living arrangements: with family Gender identity (if verbalized by the patient): Male Spiritual care concerns: No Anes - Eval Final PreProcedure Day of Procedure 01/08/21 07:42 Patient weight: overweight Heart: regular rate and rhythm Lungs: clear to auscultation and normal air movement Airway: Mallampati scale class II Neurological: alert and oriented Last oral intake: >/= 8 hours ASA classification: II Emergent: no Anesthetic plan: proceed Anesthesia type and monitoring: general LMA Informed Consent: The patient's anesthetic plan and its attendant risks and benefits were discussed with the patient/family/POA. Questions were solicited and answers provided to the satisfaction of the patient/family/POA.
[2021-01-08 08:00] VITALS: BMI 29.7
[2021-01-08 08:01] VITALS: BP 128/84; PULSE 70; RESP 16; TEMP 36; O2SAT 100
[2021-01-08] MEDS: LACTATED RINGERS 1,000 ML 30 ML IV CONT ×2 (08:27→12:56)
--- NOTE | 2021-01-08 09:43 | SUR.PREOP ---
0835- Notified and patient procedure will be delayed, verbalized understanding.
--- NOTE | 2021-01-08 12:43 | P.OP_ITS ---
Procedure Note - Detailed Date of Procedure 01/08/21 Pre-op Diagnosis bilateral ureteral kidney stones Post-op Diagnosis same Procedure Performed 1. Cystoscopy, right ureteral stent removal, right ureteroscopy with stone extraction 2. Left ureteral ESWL Surgeon Andrea Thurman MD [employer] None Anesthesia general Indications Bilateral ureteral stones Findings 1. 2mm right distal ureteral stone 2. 8mm left mid-ureteral stone Description of Procedure patient brought to the operative suite where he was 1st positioned in a dorsal lithotomy position after the uneventful induction of a general LMA anesthetic. Cystoscopy is undertaken with a 19 F rigid cystoscope. Tip of the indwelling right ureteral stent is grasped minutes brought to the external urethral meatus. A 0.035 in glidewire was advanced into the right renal pelvis. Indwelling stent is removed in right ureteroscopy was undertaken with a short tapered semi- rigid ureteral scope. His small 2-3 mm right distal ureteral stone is identified and extracted with ease using a 1.9 F disposable escape basket. Because of the ease of this manipulation I opted not to replace the stent. He was repositioned in a supine position. Lithotripsy was undertaken to the 8 mm left mid ureteral calculus were a total of 2500 shocks were delivered at a power setting of 5. There appeared to be excellent fragmentation. I left the left ureteral stent in place. He was taken to the recovery room in good condition. Implants None Estimated Blood Loss 0 Drains No Packing No Pathology yes Complications No immediate complications Condition stable Disposition PACU
[2021-01-08 12:56] VITALS: BP 104/69; PULSE 64; RESP 10; TEMP 36.2; O2SAT 97
[2021-01-08 13:10] VITALS: BP 110/64; PULSE 65; RESP 12; O2SAT 100
[2021-01-08 13:25] VITALS: BP 113/75; PULSE 77; RESP 20; O2SAT 99
[2021-01-08 13:45] VITALS: BP 125/84; PULSE 68; RESP 16
[2021-01-08 14:20] VITALS: BP 128/81; PULSE 71; RESP 16
== END 2021-01-08 14:23 | disposition home or self-care (01) ==
PROVIDERS: PCP Physician Assistant; Visit Provider Urology
PROC: (CPT 50590; principal; 2021-01-08 09:30)
PROC: (CPT 52352; 2021-01-08 09:30)
DX: N20.1 Calculus of ureter (principal); G47.33 Obstructive sleep apnea (adult) (pediatric)
CPT/HCPCS: 50590; 52352; 36415; 74018; 82365; 85610; 85730; 87426; 88300; A9270; C1769; C9803; J1885; J2250; J2405; J2704; J3010; J7120

== ENCOUNTER 2021-01-18 11:11 | Outpatient (CLI) | payer OTHER, SELFPAY ==
--- NOTE | ~2021-01-18 | XR_ITS ---
EXAMINATION: XR abdomen/kub 1V INDICATION: Kidney stones TECHNIQUE: Supine view of the abdomen was obtained. COMPARISON: 01/08/2021 FINDINGS: The right internal ureteral stent has been removed. There is a left internal ureteral stent in expected position. A stone previously seen adjacent to the left internal ureteral stent is no marquis camila identified, likely reflecting interval lithotripsy. There is a punctate 2 mm right kidney stone. There are phleboliths of the left pelvis. The bowel gas pattern is normal. Mild hip osteoarthritis is noted. IMPRESSION: 1. Interval removal of the right internal ureteral stent and treatment of a left ureteral stone. Left internal ureteral stent in expected position. 2. Right nephrolithiasis. Reviewed, dictated and finalized at location B. IMPRESSION: 1. Interval removal of the right internal ureteral stent and treatment of a lef t ureteral stone. Left internal ureteral stent in expected position. 2. Right nephrolithiasis.
== END 2021-01-18 11:12 | disposition home or self-care (01) ==
LOC: ANHIMG 11:17
PROVIDERS: PCP Physician Assistant; Visit Provider Urology
DX: N20.0 Calculus of kidney (principal)
CPT/HCPCS: 74018

== ENCOUNTER 2022-10-01 19:54 | Observation (INO) | payer OTHER, SELFPAY ==
--- NOTE | ~2022-10-01 | CT_ITS ---
CT of the Abdomen and Pelvis: Indication: Abdominal pain Technique: 2.5 mm axial scans were obtained through the abdomen and pelvis following intravenous adm inistration of 100 COMPARISON: 01/01/2021 cc of Omnipaque 350. Dose reduction technique was used on this scan by [employer] automated exposure control and iterative reconstruction technique. The dose-length product (DLP) wa s 694.62 mGy-cm. Findings: Scans through the lung bases are unremarkable. The liver, spleen, pancreas, gallbladder, adrenals and kidneys are within normal limits. No evidence of aortic aneurysm. No lymphadenopathy. No bowel obstruction or bowel wall thickening. There is no evidence to suggest acute appendicitis. Images through the pelvis were performed. Urinary bladder unremarkable. Prostate gland and seminal ve sicles are unremarkable. No ascites. Impression: No significant abnormalities seen. Reviewed, dictated and finalized at [facility]. [facility] [employer] Impression: No significant abnormalities seen.
--- NOTE | ~2022-10-01 | US_ITS ---
Limited Abdominal Sonogram: Real-time sonographic imaging of the right upper quadrant was performed. Clinical History: Right upper quadrant pain Findings: The liver appears echogenic, with no evidence of mass lesion or bile duct dilatation. Main portal vein demonstrates normal direction of flow. The gallbladder is well distended, and appears no rmal with no evidence of gallstone or wall thickening. The common bile duct measures 4 mm. The visua lized pancreas, aorta, and IVC are unremarkable. Impression: Diffuse fatty infiltration of the liver. Reviewed, dictated and finalized at location [facility]. Impression: Diffuse fatty infiltration of the liver.
--- NOTE | ~2022-10-01 | MR_ITS ---
MRI of the abdomen: Clinical indication: Abdominal pain. Technique: Coronal SSFSE ARC, WATER:coronal LAVA-FLEX, Coronal 2D FIESTA FatSat, Axial SSFSE BH ARC, Axial 3D DualEcho BH, Axial SSFSE-IR, Axial DWI b=500, Axial 2D FIESTA FatSat, pre and dynamic postco ntrast Axial LAVA ARC, postcontrast Coronal In and Opposed phase LAVA FLEX.. Following intravenous ad ministration of 17 cc MultiHance gadolinium, T1-weighted fat-sat imaging was performed in the axial a nd coronal planes. Findings: Gallbladder is unremarkable. The common bile duct is normal in course and caliber. No filli ng defects are seen within the CBD. No evidence of intrahepatic biliary ductal dilatation. The pancre atic duct is normal in size. Liver, spleen, pancreas, and adrenal glands appear normal. Simple bilateral renal cysts are present. The aorta and the paraaortic regions appear normal. No abnormal postcontrast enhancement identified. Impression: No significant abnormality. Reviewed, dictated and finalized at [facility]. Impression: No significant abnormality.
[2022-10-01 19:59] VITALS: BP 139/94; PULSE 79; RESP 18; TEMP 37; O2SAT 97
[2022-10-01 20:38] LABS: Basophils Absolute Auto 0.1 K/mm3 (0.0-0.1); Basophils Percent Auto 0.7 % (0.2-1.2); Eosinophils Absolute Auto 0.2 K/mm3 (0-0.3); Hematocrit 47.1 % (42.0-52.0); Hemoglobin 16.3 g/dL (14.0-18.0); Immature Granulocyte Absolute 0.03 K/mm3 (0.00-0.031); Immature Granulocyte Percent A 0.4 % (0-0.5); Lymphocytes Absolute Auto 1.57 K/mm3 (0.9-3.2); Lymphocytes Percent Auto 18.7 % (18.3-44.2); Mean Corpuscular HGB Conc 34.6 g/dl (32-36); Mean Corpuscular Hemoglobin 32.9 pg (26-34); Mean Platelet Volume 10.3 fl (7.4-10.4); Monocytes Absolute Auto 1.2 K/mm3 (0.1-0.6); Monocytes Percent Auto 14.3 % (2.6-8.5); Neutrophils Absolute Auto 5.4 K/mm3 (1.3-6.7); Neutrophils Percent Auto 63.9 % (45.5-73.1); Platelet Count Result 189 k/mm3 (150-375); Red Blood Count 4.96 M/mm3 (4.6-6.20); White Blood Count 8.4 K/mm3 (4.5-10.0)
[2022-10-01 20:49] LABS: Alanine Aminotransferase 367 U/L (6-50); Albumin Level 4.6 g/dL (3.5-5.1); Alkaline Phosphatase 254 U/L (38-126); Anion Gap 7 mmol/L (8-16); Aspartate Amino Transferase 175 U/L (17-59); Bilirubin Direct 2.7 mg/dL (0-0.3); Bilirubin,Total 5.9 mg/dL (0.2-1.3); Blood Urea Nitrogen 18 mg/dL (9-20); Calcium 9.4 mg/dL (8.4-10.2); Carbon Dioxide 26 mmol/L (22-30); Chloride 104 mmol/L (98-107); Estimated CRCL calculation 81 ml/min; Estimated Glomerular Filt Rate > 60; Glucose 184 mg/dL (65-110); Lipase 265 U/L (23-300); Prothrombin Time 12.8 Seconds (11.1-14.7); Sodium 137 mmol/L (137-145)
[2022-10-01 20:50] LABS: Lactic Acid Reflex 0.8 mmol/L (0.7-2.0); Partial Thromboplastin Time 27.6 SECONDS (22.3-36.8)
--- NOTE | 2022-10-01 20:53 | PC.NURSE ---
Patient taken to CT at this time.
[2022-10-01 21:24] VITALS: BP 135/87; PULSE 66; RESP 17; TEMP 36.8; O2SAT 97
[2022-10-01 21:29] LABS: Appearance Urine Clear (Clear); Bacteria Urine None Seen /hpf; Bilirubin Urine 3+ (Negative); Blood Urine Negative (Negative); Calcium Oxalate Crystals Urine Present /hpf; Color Urine Dark Yellow (Yellow); Glucose Urine UA Negative (Negative); Ketones Urine Negative (Negative); Leukocyte Esterase Ur Trace LEU/UL (Negative); Need Manual Microscopic Reviewed; Nitrate Urine Negative (Negative); Non Pathogenic Casts 0-2; Protein Urine Negative (Negative); RBC Urine 0-2 /hpf (0-2); Specific Grav Ur 1.025 (1.001-1.035); Squamous Epithelial Cell Urine None seen /hpf (Few); WBC Urine 0-5 /hpf
--- NOTE | 2022-10-01 21:32 | ED.GENADULT ---
HPI - General Adult General Chief complaint: Unspecified Stated complaint: jaundice Time Seen by Provider: 10/01/22 20:17 Related Data Home Medications Medication Instructions Recorded Confirmed glucosamine-chondroitin 250 mg-200 1 tablet PO BID 01/06/21 01/08/21 mg tablet (Osteo Bi-Flex) omega-3 fatty acids-fish oil 360 1 cap PO TID 01/06/21 01/08/21 mg-1,200 mg capsule (Fish Oil) Allergies Allergy/AdvReac Type Severity Reaction Status Date / Time No Known Allergies Allergy Verified 10/01/22 20:21 [facility] Past Medical History Medical History (Updated 01/08/21 @ 07:43 by Nakul Mobley MD) Bilateral ureteral calculi IDA on CPAP Overweight (BMI 25.0-29.9) Family History Family History Unknown Unknown family medical history Social History Social History Smoking status: Never smoker Alcohol intake: current Drinks per week: 1 Substance use: never Substance use type: does not use Living arrangements: with family Gender identity (if verbalized by the patient): Male Spiritual care concerns: No Course Vital Signs Vital signs: Vital Signs Temperature 98.6 F 10/01/22 19:59 Pulse Rate 79 10/01/22 19:59 Respiratory Rate 18 10/01/22 19:59 Blood Pressure 139/94 H 10/01/22 19:59 Pulse Oximetry 97 10/01/22 19:59 Oxygen Delivery Room Air 10/01/22 19:59 Temperature 98.3 F 10/01/22 21:24 Pulse Rate 66 10/01/22 21:24 Respiratory Rate 17 10/01/22 21:24 Blood Pressure 135/87 10/01/22 21:24 Pulse Oximetry 97 10/01/22 21:24 Oxygen Delivery Room Air 10/01/22 19:59 Medical Decision Making Vital Signs Vital Signs: Vital Signs Temperature 98.6 F 10/01/22 19:59 Pulse Rate 79 10/01/22 19:59 Respiratory Rate 18 10/01/22 19:59 Blood Pressure 139/94 H 10/01/22 19:59 Pulse Oximetry 97 10/01/22 19:59 Oxygen Delivery Room Air 10/01/22 19:59 Temperature 98.3 F 10/01/22 21:24 Pulse Rate 66 10/01/22 21:24 Respiratory Rate 17 10/01/22 21:24 Blood Pressure 135/87 10/01/22 21:24 Pulse Oximetry 97 10/01/22 21:24 Oxygen Delivery Room Air 10/01/22 19:59 Lab Data 10/01/22 20:30 10/01/22 20:30 Labs: Lab Results 10/01/22 10/01/22 10/01/22 Range/Units 20:29 20:30 20:30 WBC 8.4 (4.5-10.0) K/mm3 RBC 4.96 (4.6-6.20) M/mm3 Hgb 16.3 D (14.0-18.0) g/dL Hct 47.1 (42.0-52.0) % MCV 95.0 (80-100) fl MCH 32.9 (26-34) pg MCHC 34.6 (32-36) g/dl RDW 13.0 (11.5-14.5) % Plt Count 189 (150-375) k/mm3 MPV 10.3 (7.4-10.4) fl Immature Gran % (Auto) 0.4 (0-0.5) % Neut % (Auto) 63.9 (45.5-73.1) % Lymph % (Auto) 18.7 (18.3-44.2) % Rich % (Auto) 14.3 H (2.6-8.5) % Eos % (Auto) 2.0 (0-4.4) % Baso % (Auto) 0.7 (0.2-1.2) % Lymph # (Auto) 1.57 (0.9-3.2) K/mm3 Rich # (Auto) 1.2 H (0.1-0.6) K/mm3 Eos # (Auto) 0.2 (0-0.3) K/mm3 Baso # (Auto) 0.1 (0.0-0.1) K/mm3 Abs Immat Gran (auto) 0.03 (0.00-0.031) K/mm3 Absolute Neuts (auto) 5.4 (1.3-6.7) K/mm3 Absolute Nucleated RBC 0.0 (0.0-0.012) K/mm3 Nucleated RBC % 0.0 (0.0-0.2) % PT 12.8 (11.1-14.7) Seconds INR 1.0 APTT 27.6 (22.3-36.8) SECONDS Sodium (137-145) mmol/L Potassium (3.4-5.0) mmol/L Chloride (98-107) mmol/L Carbon Dioxide (22-30) mmol/L Anion Gap (8-16) mmol/L BUN (9-20) mg/dL Creatinine (0.7-1.3) mg/dL Estim Creat Clear Calc ml/min Estimated GFR (59 - ) Glucose (65-110) mg/dL Lactic Acid (0.7-2.0) mmol/L Calcium (8.4-10.2) mg/dL Total Bilirubin (0.2-1.3) mg/dL Direct Bilirubin (0-0.3) mg/dL AST (17-59) U/L ALT (6-50) U/L Alkaline Phosphatase (38-126) U/L Total Protein (6.3-8.2) g/dL Albumin (3.5-5.1) g/dL Lipa
[2022-10-01 21:37] LABS: Add Urine Microscopic? YES
--- NOTE | 2022-10-01 22:01 | ED.GENADULT ---
HPI - General Adult General Chief complaint: Unspecified Stated complaint: jaundice Time Seen by Provider: 10/01/22 20:17 History of Present Illness HPI narrative: Is a 57-year-old gentleman who presents the emergency department with chief complaint of jaundice. Patient reports that over the last week he has noticed that his urine has been somewhat dark-colored had a little bit of generalized malaise feeling and reports that he has not really had abdominal pain. Patient's family noted that today he turned yellow and a made him come to the emergency department for evaluation. Patient denies fever denies abdominal pain. Patient reports no new medications, denies heavy alcohol use, denies IVDA Related Data Home Medications Medication Instructions Recorded Confirmed glucosamine-chondroitin 250 mg-200 1 tablet PO BID 01/06/21 01/08/21 mg tablet (Osteo Bi-Flex) omega-3 fatty acids-fish oil 360 1 cap PO TID 01/06/21 01/08/21 mg-1,200 mg capsule (Fish Oil) Allergies Allergy/AdvReac Type Severity Reaction Status Date / Time No Known Allergies Allergy Verified 10/01/22 20:21 Review of Systems Review of Systems: A 10 system review of systems was completed on the patient and is negative except for what is stated in the HPI. Nursing and ancillary documentation was reviewed. [facility] Past Medical History Medical History Bilateral ureteral calculi IDA on CPAP Overweight (BMI 25.0-29.9) Family History Family History Unknown Unknown family medical history Social History Social History Smoking status: Never smoker Alcohol intake: current Drinks per week: 1 Substance use: never Substance use type: does not use Living arrangements: with family Gender identity (if verbalized by the patient): Male Spiritual care concerns: No Exam Narrative: GENERAL: Well-appearing, well-nourished, and in no acute distress. HEAD: Normocephalic, atraumatic. EYES: PERRLA and EOMI. icteric ENT: Nares clear, no rhinorrhea or epistaxis. Mucous membranes moist. NECK: Supple. CHEST: Clear to auscultation. No respiratory distress. HEART: Regular rate and rhythm. No murmur heard. Normal peripheral pulses. ABDOMEN: Soft, nontender, nondistended, normal active bowel sounds. EXTREMITIES: Normal range of motion. No edema. SKIN: Warm, dry, no rash. Jaundice NEURO: No focal deficits. Alert and oriented x3. PSYCH: Normal mood and affect. Course Vital Signs Vital signs: Vital Signs Temperature 37.0 C 10/01/22 19:59 Pulse Rate 79 10/01/22 19:59 Respiratory Rate 18 10/01/22 19:59 Blood Pressure 139/94 H 10/01/22 19:59 Pulse Oximetry 97 10/01/22 19:59 Oxygen Delivery Room Air 10/01/22 19:59 Temperature 36.8 C 10/01/22 21:24 Pulse Rate 66 10/01/22 21:24 Respiratory Rate 17 10/01/22 21:24 Blood Pressure 135/87 10/01/22 21:24 Pulse Oximetry 97 10/01/22 21:24 Oxygen Delivery Room Air 10/01/22 19:59 Medical Decision Making [facility] Narrative Medical decision making narrative: Differential diagnosis includes biliary obstruction due to cholelithiasis, cholangitis, biliary or pancreatic neoplasm, hepatitis, cirrhosis Laboratory studies were obtained which showed a bilirubin of 5.9 and a direct bilirubin of 2.7. AST was mildly elevated at 175 and ALT was 367 alk phos is elevated at 254. The patient coagulation studies showed an INR of 1.0 CBC showed a hemoglobin of 16.3. The CT abdomen pelvis showed no acute abnormality Due to the patient having painless jaundice and no definitive cause. The case was discussed with the hospitalist patient was excepted to the hospitalist service right upper quadrant ultrasound will be ordered on the patient and GI will be consulted in the morning. Vital Signs Vital S
[2022-10-01 22:28] LABS: Hepatitis B Surface Antigen Negative (Negative)
[2022-10-01 22:34] LABS: HAV RESULT Negative (Negative); Hepatitis B Core IgM Result Negative (Negative)
[2022-10-01 22:41] VITALS: BP 129/89; PULSE 76; RESP 17; TEMP 36.8; O2SAT 97
[2022-10-01 22:46] LABS: Hepatitis C Virus Antibody Negative (Negative)
[2022-10-01 23:13] VITALS: BP 140/93; PULSE 74; RESP 18; TEMP 37.1; O2SAT 98
[2022-10-01 23:14] VITALS: BMI 30.7
--- NOTE | 2022-10-01 23:22 | ADMGEN ---
This patient, Tino Delgadillo, was admitted to [facility] Surg Room 303-01. Patient/family oriented to hospital policies and general routines including ID bracelet, bed and alarms, visiting hours, pain management, procedures, bathroom and other care routines, personal items, smoking policy, room service/diet, and visiting hours. Information on how to activate the Rapid Response Team has been discussed. Patient/Family are encouraged to report perceived risks to care and to ask questions if they do not understand what they are told or what they should do.
--- NOTE | 2022-10-01 23:36 | PM.IMHP ---
H&P: HPI History of Present Illness Date/Time: 10/01/22 23:36 Chief Complaint: Jaundice Narrative: This is a 57-year-old male with past medical history significant for obstructive sleep apnea on CPAP. Patient came to the emergency room after he noticed yellow discoloration of the sclera and skin. Patient has been in his usual state of health he denies any weight loss, nausea, vomiting, diarrhea, no fevers, no rigors no chills, no abdominal pain, no use of Tylenol, denies poor appetite has had dark colored urine. Preliminary workup was significant for CT of abdomen and pelvis was reported as: Findings:? Scans through the lung bases are unremarkable. The liver, spleen, pancreas, gallbladder, adrenals and kidneys are within normal limits.? No evidence of aortic aneurysm.? No lymphadenopathy. No bowel obstruction or bowel wall thickening. There is no evidence to suggest acute appendicitis. Images through the pelvis were performed. Urinary bladder unremarkable. Prostate gland and seminal vesicles are unremarkable. No ascites. Impression: No significant abnormalities seen. Review of Systems Review of Systems: Icterus Constitutional: Constitutional: Denies chills, Denies fatigue, Denies fever(s), Denies lethargy, Denies malaise, Denies night sweats, Reports poor appetite, Denies weakness and Denies weight loss Eyes: Eyes: Denies change in vision ENT: Denies dysphagia and Denies odynophagia Cardiovascular: Cardiovascular: Denies chest pain and Denies leg edema Respiratory: Respiratory: Denies chest congestion and Denies cough Gastrointestinal: Gastrointestinal: Denies abdominal pain, Denies dyspepsia, Denies heartburn, Denies diarrhea, Denies loose stools, Denies nausea and Denies vomiting Genitourinary: Genitourinary: Denies hematuria, Denies dysuria, Denies flank pain and Reports other (Dark color urine) Musculoskeletal: Musculoskeletal: Denies back pain and Denies muscle weakness Integumentary/Breasts: Skin/Breast: Denies rash Neurologic: Denies focal weakness and Denies Sensory deficit (Neuro) Psychiatric: Psychiatric: Reports no additional psychiatric complaints and Reports as per HPI Endocrine: Endocrine: Denies cold intolerance, Denies flushing, Denies heat intolerance, Denies polyphagia, Denies polydipsia and Denies palpitations Hematologic/Lymphatic: Hematologic/Lymphatic: Reports no additional hematologic/lymphatic complaints and Reports as per HPI Allergic/Immunologic: Allergic/Immunologic: Reports no additional allergic/immunologic complaints and Reports as per HPI [facility] Past Medical History Medical History Bilateral ureteral calculi IDA on CPAP Overweight (BMI 25.0-29.9) Family History Family History Unknown Unknown family medical history Social History Social History Smoking status: Never smoker Second hand tobacco smoke exposure: No Alcohol intake: current Drinks per week: 1 Substance use: never Substance use type: does not use Lack of Transportation: No Lack of Food: Never True Current Housing: I Have Housing Concerned About Future Housing: No Difficulty Paying Gas/Electric Bills: No Difficulty Paying for Meds: No Currently Unemployed: No Education: High School Diploma/GED Difficulty w/ Childcare or Family Care: No Living arrangements: with family Gender identity (if verbalized by the patient): Male Spiritual care concerns: No Meds Home Medications and Allergies Home Medications Medication Instructions Recorded Confirmed Type No Home Medications 10/01/22 10/01/22 History Allergies Allergy/AdvReac Type Severity Reaction Status Date / Time No Known Allergies Allergy Verified 10/01/22 20:21 Vital Signs Vital Signs - 24 hr 10/01/22 19:59
--- NOTE | 2022-10-02 01:58 | PC.NURSE ---
Daylight Savings Time For Daylight Savings Time Ending in the Fall - Clocks are moved back. For Daylight Savings Time Beginning in the Spring - Clocks are moved ahead. For [facility], the time of change occurs at 0200 hrs. Time is taken from the client server developer. This entry on the patient's chart recognizes the change in time reflected during documentation. Example: 2 entries for vital signs may be charted for 0200 hrs.
[2022-10-02 06:00] VITALS: BP 128/73; PULSE 83; RESP 18; TEMP 36.4; O2SAT 97
[2022-10-02 06:15] LABS: Basophils Absolute Auto 0.1 K/mm3 (0.0-0.1); Basophils Percent Auto 1.1 % (0.2-1.2); Eosinophils Absolute Auto 0.2 K/mm3 (0-0.3); Eosinophils Percent Auto 2.4 % (0-4.4); Hematocrit 43.9 % (42.0-52.0); Hemoglobin 15.4 g/dL (14.0-18.0); Immature Granulocyte Absolute 0.03 K/mm3 (0.00-0.031); Immature Granulocyte Percent A 0.4 % (0-0.5); Lymphocytes Absolute Auto 1.39 K/mm3 (0.9-3.2); Lymphocytes Percent Auto 18.3 % (18.3-44.2); Mean Corpuscular HGB Conc 35.1 g/dl (32-36); Mean Corpuscular Volume 94.2 fl (80-100); Mean Platelet Volume 10.5 fl (7.4-10.4); Monocytes Absolute Auto 1.3 K/mm3 (0.1-0.6); Monocytes Percent Auto 16.7 % (2.6-8.5); Neutrophils Absolute Auto 4.7 K/mm3 (1.3-6.7); Neutrophils Percent Auto 61.1 % (45.5-73.1); Platelet Count Result 176 k/mm3 (150-375); Red Blood Count 4.66 M/mm3 (4.6-6.20); White Blood Count 7.6 K/mm3 (4.5-10.0)
[2022-10-02 06:30] LABS: Alanine Aminotransferase 317 U/L (6-50); Albumin Level 4.2 g/dL (3.5-5.1); Alkaline Phosphatase 238 U/L (38-126); Anion Gap 6 mmol/L (8-16); Aspartate Amino Transferase 159 U/L (17-59); Bilirubin,Total 5.2 mg/dL (0.2-1.3); Blood Urea Nitrogen 17 mg/dL (9-20); Carbon Dioxide 27 mmol/L (22-30); Chloride 100 mmol/L (98-107); Estimated CRCL calculation 81 ml/min; Estimated Glomerular Filt Rate > 60; Glucose 197 mg/dL (65-110); Sodium 133 mmol/L (137-145)
--- NOTE | 2022-10-02 10:30 | WPDGICN ---
Assessment and Plan Assessment and plan (1) Elevated LFTs: Code(s): R79.89 - Other specified abnormal findings of blood chemistry Status: Acute Assessment and Plan: Patient found to have elevated LFTs. Prompted by the observation of jaundice. This is painless. CT scan is negative. Hepatitis serologies are negative. Plan is to obtain an MRCP to evaluate for biliary obstruction. Gallbladder ultrasound has been ordered as well. Pending results of the studies ERCP or referral for endoscopic ultrasound may be warranted. Painless jaundice raises the concern over possible pancreatic lesion. (2) Jaundice: Code(s): R17 - Unspecified jaundice Status: Acute GI Consult Note Consult date/time: 10/02/22 10:30 Reason for consult: Painless jaundice. HPI: Tino Delgadillo is a 57 year old male Presents with jaundice. Patient states that he was in his usual state of health until as noticed his eyes were yellow yesterday. In retrospect he notices that his urine is quite dark. Patient denies fever. He denies abdominal pain. He is on no medications. He has had no recent travel. He has never had hepatitis in the past that he is aware of. He has not been exposed to anyone that he knows has hepatitis. Upon presented to the emergency room elevated LFTs including bilirubin was identified. CT scan of the abdomen in the emergency room was unremarkable. Hepatitis ABC serologies are negative. Review of Systems Review of Systems: Review of systems noncontributory. [facility] Past Medical History Medical History Bilateral ureteral calculi IDA on CPAP Overweight (BMI 25.0-29.9) Family History Family History Unknown Unknown family medical history Social History Social History Smoking status: Never smoker Second hand tobacco smoke exposure: No Alcohol intake: current Drinks per week: 1 Substance use: never Substance use type: does not use Lack of Transportation: No Lack of Food: Never True Current Housing: I Have Housing Concerned About Future Housing: No Difficulty Paying Gas/Electric Bills: No Difficulty Paying for Meds: No Currently Unemployed: No Education: High School Diploma/GED Difficulty w/ Childcare or Family Care: No Living arrangements: with family Gender identity (if verbalized by the patient): Male Spiritual care concerns: No Meds Home Medications and Allergies Home Medications Medication Instructions Recorded Confirmed Type No Home Medications 10/01/22 10/01/22 History Allergies Allergy/AdvReac Type Severity Reaction Status Date / Time No Known Allergies Allergy Verified 10/01/22 20:21 Vital Signs Vital Signs - 24 hr 10/01/22 19:59 10/01/22 21:24 10/01/22 22:41 Temperature 98.6 F 98.3 F 98.3 F Pulse Rate 79 66 76 Respiratory Rate 18 17 17 Blood Pressure 139/94 H 135/87 129/89 Pulse Oximetry 97 97 97 Oxygen Delivery Room Air 10/01/22 23:13 10/02/22 06:00 10/02/22 08:25 Temperature 98.7 F 97.5 F L Pulse Rate 74 83 Respiratory Rate 18 18 Blood Pressure 140/93 H 128/73 Pulse Oximetry 98 97 Oxygen Delivery Room Air Exam Narrative: Physical exam reveals patient be alert. Vital signs stable. HEENT exam reveals scleral icterus. Skin is somewhat yellowish. He is afebrile. Lungs are clear to auscultation and percussion. Heart is without murmur or extra sounds. Abdomen bowel sounds are present soft nontender with no organomegaly. The extremities are without clubbing cyanosis or edema. Results Labs 10/02/22 06:02 10/02/22 06:02 Labs: Short CBC 10/01/22 10/02/22 Range/Units 20:30 06:02 WBC 8.4 7.6 (4.5-10.0) K/mm3 Hgb 16.3 D 15.4 (14.0-18.0) g/dL Hct 47.1 43.9 (4
--- NOTE | 2022-10-02 11:33 | PM.IMPN ---
Progress Note: A&P Assessment and Plan (1) Hyperbilirubinemia: Code(s): E80.6 - Other disorders of bilirubin metabolism Status: Acute Assessment and Plan: Admit to regular medical floor Right upper quadrant ultrasound in a.m. CT abdomen and pelvis reviewed GI consult (2) Abnormal liver enzymes: Code(s): R74.8 - Abnormal levels of other serum enzymes Status: Acute Assessment and Plan: Patient denies any use of Tylenol Hepatitis panel in progress Continue to trend liver enzymes (3) IDA on CPAP: Code(s): G47.33 - Obstructive sleep apnea (adult) (pediatric); Z99.89 - Dependence on other enabling machines and devices Status: Acute Assessment and Plan: CPAP at nighttime Subjective Date/time seen: 10/02/22 11:33 No new complaints Exam Narrative: Patient is sitting in a stretcher in semi upright position Const: General: comfortable, no acute distress, well developed, alert, awake and average body habitus Nutritional Appearance: average body habitus Orientation/consciousness: patient oriented x3 Other: Jaundiced HENMT: Head: normal to inspection, normocephalic and atraumatic Ears: hearing grossly normal bilaterally Face/Nose/Sinus: normal facial exam Face and sinus: normal facial exam Eyes: General: appearance normal, both eyes and all related structures Sclera: scleral abnormality bilateral (Icterus) Pupils: Equal, round and reactive pupils present EOM: EOMs intact bilaterally Neck: Neck: full ROM, no lymphadenopathy and no JVD Thyroid: thyroid normal Lymphatic: no lymphadenopathy noted Resp: Effort & Inspection: normal respiratory effort and able to speak in complete sentences Auscultation: clear to auscultation bilaterally Cardio: Jugular venous distension: no JVD Rate: regular rate Rhythm: regular rhythm Heart sounds: S1 normal heart sound present and S2 normal heart sound present : General: Yes deferred Skin: Rashes: no rashes Wounds: no wounds Neuro: General: patient oriented x3 and CN's II-XI intact bilaterally Cranial nerves: Yes CN's II-XII intact bilaterally and Yes Equal, round and reactive pupils present Cognition (Neuro): normal cognition Speech: normal speech Gait exam (Neuro): Normal gait present Motor exam (neuro): 5/5 motor strength present throughout Sensory Exam: No Sensory deficit (Neuro) Extrem: General: normal to inspection, full ROM, no joint enlargement and no pedal edema Objective Data Vital Signs Vital Signs: Vital Signs - 24 hr 10/01/22 19:59 10/01/22 21:24 10/01/22 22:41 Temperature 98.6 F 98.3 F 98.3 F Pulse Rate 79 66 76 Respiratory Rate 18 17 17 Blood Pressure 139/94 H 135/87 129/89 Pulse Oximetry 97 97 97 Oxygen Delivery Room Air 10/01/22 23:13 10/02/22 06:00 10/02/22 08:25 Temperature 98.7 F 97.5 F L Pulse Rate 74 83 Respiratory Rate 18 18 Blood Pressure 140/93 H 128/73 Pulse Oximetry 98 97 Oxygen Delivery Room Air Intake/Output Intake/Output: Intake & Output 09/29/22 09/30/22 10/01/22 10/03/22 23:59 23:59 23:59 00:59 Intake Total 480 Balance 480 Meds/Results Radiology Results: ITS Impressions Abdomen/Pelvis CT 10/01/22 21:16 Impression: No significant abnormalities seen. Labs Labs: Laboratory Results - last 24 hr 10/01/22 10/01/22 10/01/22 20:29 20:30 20:30 WBC 8.4 RBC 4.96 Hgb 16.3 D Hct 47.1 MCV 95.0 MCH 32.9 MCHC 34.6 RDW 13.0 Plt Count 189 MPV 10.3 Immature Gran % (Auto) 0.4 Neut % (Auto) 63.9 Lymph % (Auto) 18.7 [place] % (Auto) 14.3 H Eos % (Auto) 2.0 Baso % (Auto) 0.7 Lymph # (Auto) 1.57 [place] # (Auto) 1.2 H Eos # (Auto) 0.2 Baso # (Auto) 0.1 Abs Immat Gran (auto) 0.03 Absolute Neuts (auto) 5.4 Absolute Nucleated RBC 0.0 Nucleated RBC % 0.0 PT 12.8 INR 1.0 APTT 27.6 Sodium Potassium Chloride Carbon Dioxide Anion Gap
[2022-10-02 15:11] VITALS: BP 130/90; PULSE 85; RESP 16; TEMP 36.7; O2SAT 96
[2022-10-02 21:48] VITALS: BP 146/94; PULSE 76; RESP 16; TEMP 36.9; O2SAT 97
[2022-10-03 05:53] VITALS: BP 131/84; PULSE 82; RESP 16; TEMP 36.2; O2SAT 96
[2022-10-03 06:45] LABS: Alanine Aminotransferase 310 U/L (6-50); Albumin Level 4.1 g/dL (3.5-5.1); Alkaline Phosphatase 276 U/L (38-126); Anion Gap 5 mmol/L (8-16); Aspartate Amino Transferase 151 U/L (17-59); Bilirubin,Total 5.9 mg/dL (0.2-1.3); Blood Urea Nitrogen 13 mg/dL (9-20); Calcium 8.6 mg/dL (8.4-10.2); Carbon Dioxide 27 mmol/L (22-30); Chloride 103 mmol/L (98-107); Estimated CRCL calculation 102 ml/min; Estimated Glomerular Filt Rate > 60; Glucose 186 mg/dL (65-110); Sodium 135 mmol/L (137-145)
[2022-10-03 10:04] LABS: Iron 73 ug/dL (49-181)
[2022-10-03 10:13] LABS: Percent Iron Saturation 26 % (20-50)
[2022-10-03 10:19] VITALS: O2SAT 94
--- NOTE | 2022-10-03 11:49 | PM.IMPN ---
Progress Note: A&P Assessment and Plan (1) Hyperbilirubinemia: Code(s): E80.6 - Other disorders of bilirubin metabolism Status: Acute Assessment and Plan: Workup unrevealing. (2) Abnormal liver enzymes: Code(s): R74.8 - Abnormal levels of other serum enzymes Status: Acute Assessment and Plan: Patient denies any use of Tylenol Hepatitis panel in progress Continue to trend liver enzymes (3) IDA on CPAP: Code(s): G47.33 - Obstructive sleep apnea (adult) (pediatric); Z99.89 - Dependence on other enabling machines and devices Status: Acute Assessment and Plan: CPAP at nighttime Subjective Date/time seen: 10/03/22 11:49 Still has jaundice, improved Exam Narrative: Patient is sitting in a stretcher in semi upright position Const: General: comfortable, no acute distress, well developed, alert, awake and average body habitus Nutritional Appearance: average body habitus Orientation/consciousness: patient oriented x3 Other: Jaundiced HENMT: Head: normal to inspection, normocephalic and atraumatic Ears: hearing grossly normal bilaterally Face/Nose/Sinus: normal facial exam Face and sinus: normal facial exam Eyes: General: appearance normal, both eyes and all related structures Sclera: scleral abnormality bilateral (Icterus) Pupils: Equal, round and reactive pupils present EOM: EOMs intact bilaterally Neck: Neck: full ROM, no lymphadenopathy and no JVD Thyroid: thyroid normal Lymphatic: no lymphadenopathy noted Resp: Effort & Inspection: normal respiratory effort and able to speak in complete sentences Auscultation: clear to auscultation bilaterally Cardio: Jugular venous distension: no JVD Rate: regular rate Rhythm: regular rhythm Heart sounds: S1 normal heart sound present and S2 normal heart sound present : General: Yes deferred Skin: Rashes: no rashes Wounds: no wounds Neuro: General: patient oriented x3 and CN's II-XI intact bilaterally Cranial nerves: Yes CN's II-XII intact bilaterally and Yes Equal, round and reactive pupils present Cognition (Neuro): normal cognition Speech: normal speech Gait exam (Neuro): Normal gait present Motor exam (neuro): 5/5 motor strength present throughout Sensory Exam: No Sensory deficit (Neuro) Extrem: General: normal to inspection, full ROM, no joint enlargement and no pedal edema Objective Data Vital Signs Vital Signs: Vital Signs - 24 hr 10/02/22 15:11 10/02/22 21:48 10/03/22 05:53 Temperature 98.1 F 98.5 F 97.1 F L Pulse Rate 85 76 82 Respiratory Rate 16 16 16 Blood Pressure 130/90 146/94 H 131/84 Pulse Oximetry 96 97 96 Oxygen Delivery 10/03/22 08:55 10/03/22 10:19 Temperature Pulse Rate Respiratory Rate Blood Pressure Pulse Oximetry 94 Oxygen Delivery Room Air Room Air Intake/Output Intake/Output: Intake & Output 09/30/22 10/01/22 10/02/22 10/03/22 22:59 22:59 23:59 23:59 Intake Total 0 Balance 0 Meds/Results Radiology Results: ITS Impressions Abdomen/Pelvis CT 10/01/22 21:16 Impression: No significant abnormalities seen. Abdomen Ultrasound 10/02/22 14:40 Impression: Diffuse fatty infiltration of the liver. MRCP 10/02/22 15:01 Impression: No significant abnormality. Labs Labs: Laboratory Results - last 24 hr 10/03/22 10/03/22 06:20 08:38 Sodium 135 L Potassium 4.0 Chloride 103 Carbon Dioxide 27 Anion Gap 5 L BUN 13 Creatinine 0.70 Estim Creat Clear Calc 102 Estimated GFR > 60 Glucose 186 H Calcium 8.6 Iron 73 TIBC 283 Total Bilirubin 5.9 H AST 151 H ALT 310 H Alkaline Phosphatase 276 H Total Protein 7.0 Albumin 4.1
--- NOTE | 2022-10-03 13:38 | WPDGIPROGNO ---
Progress Note: A&P Assessment and Plan (1) Painless jaundice: Code(s): R17 - Unspecified jaundice Status: Acute Assessment and Plan: bilirubin today is slightly higher at 5.9. He reiterated that he has never had jaundice before. It was about of last week that he noted dark urine. (2) Abnormal liver enzymes: Code(s): R74.8 - Abnormal levels of other serum enzymes Status: Acute Assessment and Plan: No significant change since admission in liver enzymes with AST 151, ALT 310 and alk phosphatase 276. (3) Hyperbilirubinemia: Code(s): E80.6 - Other disorders of bilirubin metabolism Status: Acute Assessment and Plan: Imaging studies today do not show evidence of obstructive jaundice. I told the patient and his that this is more likely an intrahepatic jaundice such as we see with hepatitis or other chronic liver diseases. I again reviewed his family history which is unremarkable. Plan Will check iron studies, ferritin, serology for autoimmune liver disease. I told the patient and his that at this juncture does not appear that he will need an ERCP. Subjective Date/time seen: 10/03/22 13:38 the patient states that he had no symptoms until last when he began to notice dark urine. A day later his noticed that he seemed slightly yellow. He has had no fever or chills. He denies pruritus. He denies any prior history of liver disease or jaundice. He is not aware of any family history of liver disease. So far all imaging studies are negative. No abnormalities of the pancreas, no biliary dilatation and no evidence of common duct problems on MRCP. He is eating well. He denies any abdominal pain. Exam Const: General: alert Orientation/consciousness: patient oriented x3 Eyes: Sclera: scleral abnormality bilateral ( icterus) and diffuse Resp: Auscultation: clear to auscultation bilaterally Cardio: Rhythm: regular rhythm GI: GI Palp: Yes Soft to palpation and No Tenderness to palpation present (GI) Skin: General skin exam: jaundice ( Mild) Neuro: General: patient oriented x3 Objective Data Vital Signs Vital Signs: Vital Signs - 24 hr 10/02/22 15:11 10/02/22 21:48 10/03/22 05:53 Temperature 36.7 C 36.9 C 36.2 C L Pulse Rate 85 76 82 Respiratory Rate 16 16 16 Blood Pressure 130/90 146/94 H 131/84 Pulse Oximetry 96 97 96 Oxygen Delivery 10/03/22 08:55 10/03/22 10:19 Temperature Pulse Rate Respiratory Rate Blood Pressure Pulse Oximetry 94 Oxygen Delivery Room Air Room Air Intake/Output Intake/Output: Intake & Output 09/30/22 10/01/22 10/02/22 10/03/22 22:59 22:59 23:59 23:59 Intake Total 0 Balance 0 Meds/Results Radiology Results: ITS Impressions Abdomen/Pelvis CT 10/01/22 21:16 Impression: No significant abnormalities seen. Abdomen Ultrasound 10/02/22 14:40 Impression: Diffuse fatty infiltration of the liver. MRCP 10/02/22 15:01 Impression: No significant abnormality. Labs Labs: Laboratory Results - last 24 hr 10/03/22 10/03/22 06:20 08:38 Sodium 135 L Potassium 4.0 Chloride 103 Carbon Dioxide 27 Anion Gap 5 L BUN 13 Creatinine 0.70 Estim Creat Clear Calc 102 Estimated GFR > 60 Glucose 186 H Calcium 8.6 Iron 73 TIBC 283 % Saturation 26 Ferritin 1200.00 H Total Bilirubin 5.9 H AST 151 H ALT 310 H Alkaline Phosphatase 276 H Total Protein 7.0 Albumin 4.1 Amg Follow[facility]up [facility] Follow-up Hospital Follow-up: [id number] Subs Hosp Care Mod
[2022-10-03 14:00] VITALS: BP 128/81; PULSE 96; RESP 20; TEMP 36.6; O2SAT 97
[2022-10-03 15:25] LABS: Monoscreen Negative (Negative); Negative Monotest Control Negative (Negative); Positive Monotest Control Positive (Positive)
[2022-10-03 20:00] VITALS: PULSE 85; RESP 14; O2SAT 96
[2022-10-03 21:39] VITALS: BP 145/88; PULSE 85; RESP 14; TEMP 36.8; O2SAT 96
[2022-10-04 05:53] VITALS: BP 106/67; PULSE 82; RESP 14; TEMP 36.1; O2SAT 96
[2022-10-04 08:45] LABS: Alanine Aminotransferase 276 U/L (6-50); Albumin Level 4.4 g/dL (3.5-5.1); Alkaline Phosphatase 337 U/L (38-126); Aspartate Amino Transferase 106 U/L (17-59); Bilirubin Direct 0.4 mg/dL (0-0.3); Bilirubin,Total 3.8 mg/dL (0.2-1.3)
[2022-10-04] MEDS: CHOLESTYRAMINE LIGHT 4 GM POWD.PACK PO (09:06)
--- NOTE | 2022-10-04 10:10 | WPDGIPROGNO ---
Progress Note: A&P Assessment and Plan (1) Elevated LFTs: Code(s): R79.89 - Other specified abnormal findings of blood chemistry Status: Acute Assessment and Plan: Patient's liver function test of begun to improve. Etiology of this is unclear. May be viral because of elevated monocytes. Ferritin is elevated raising the question of hemochromatosis. Imaging studies reveal no evidence for obstruction. Patient currently asymptomatic aside from jaundice. Plan for Questran to help with the itching. Allow regular diet. Discharge with follow-up LFTs later this week. Follow-up in the office in 1 week. Laboratory testing still pending include CA 19-9 level. Also hemochromatosis testing and EBV titer. For possible viral etiologies. No evidence the patient is contagious at present. Had hepatitis ABC serologies are negative. (2) Jaundice: Code(s): R17 - Unspecified jaundice Status: Acute (3) Pruritus: Code(s): L29.9 - Pruritus, unspecified Status: Acute Subjective Date/time seen: 10/04/22 10:10 Interval history: Patient remains alert comfortable this morning. Denies abdominal pain. Does have some peer right is. Review of Systems Review of Systems: Review of systems noncontributory. Exam Narrative: Physical exam reveals patient to be alert. Vital signs stable. HEENT exam is significant for scleral icterus. Lungs are clear. Heart without murmur. Abdomen bowel sounds present soft nontender with no hepatosplenomegaly. Extremities without clubbing cyanosis or edema. Objective Data Vital Signs Vital Signs: Vital Signs - 24 hr 10/03/22 10:19 10/03/22 14:00 10/03/22 21:39 Temperature 97.9 F 98.2 F Pulse Rate 96 85 Respiratory Rate 20 14 Blood Pressure 128/81 145/88 H Pulse Oximetry 94 97 96 Oxygen Delivery Room Air 10/03/22 20:00 10/04/22 05:53 10/04/22 09:06 Temperature 97.0 F L Pulse Rate 85 82 Respiratory Rate 14 14 Blood Pressure 106/67 Pulse Oximetry 96 96 Oxygen Delivery Room Air Room Air Intake/Output Intake/Output: Intake & Output 10/01/22 10/02/22 10/03/22 10/04/22 22:59 23:59 23:59 23:59 Intake Total 462 750 Balance 462 750 Meds/Results Medications: Active Medications Generic Name Dose Route Start Last Admin Trade Name Freq PRN Reason Stop Dose Admin Cholestyramine Resin 4 gm 10/04/22 10:00 10/04/22 09:06 Cholestyramine Light 4 Gm Powd.Pack PO 4 gm QID RXN HERMINIA Administration Radiology Results: ITS Impressions Abdomen/Pelvis CT 10/01/22 21:16 Impression: No significant abnormalities seen. Abdomen Ultrasound 10/02/22 14:40 Impression: Diffuse fatty infiltration of the liver. MRCP 10/02/22 15:01 Impression: No significant abnormality. Labs Labs: Laboratory Results - last 24 hr 10/03/22 10/03/22 10/04/22 06:02 08:38 08:22 TIBC 283 % Saturation 26 Ferritin 1200.00 H Total Bilirubin 3.8 H Direct Bilirubin 0.4 H AST 106 H ALT 276 H Alkaline Phosphatase 337 H Total Protein 8.0 Albumin 4.4 Monoscreen Negative Amg Follow-up [facility]illing [facility] Follow-up Hospital Follow-up: [id number] Subs Hosp Care Mod
--- NOTE | 2022-10-04 10:50 | PM.DS ---
DS: Admitting Diagnosis Discharge Date October 04, 2022 Admitting Diagnosis Jaundice DS: Discharge Diagnosis Discharge Diagnosis (1) Hyperbilirubinemia: Code(s): E80.6 - Other disorders of bilirubin metabolism Status: Acute Assessment and Plan: Workup unrevealing. (2) Abnormal liver enzymes: Code(s): R74.8 - Abnormal levels of other serum enzymes Status: Acute Assessment and Plan: Patient denies any use of Tylenol Hepatitis panel in progress Continue to trend liver enzymes (3) IDA on CPAP: Code(s): G47.33 - Obstructive sleep apnea (adult) (pediatric); Z99.89 - Dependence on other enabling machines and devices Status: Acute Assessment and Plan: CPAP at nighttime DS: Summary Hospital Course Hospital Course: Patient was admitted for jaundice with elevated liver enzymes. GI was consulted. No role for ERCP. Imaging studies reviewed. No significant obstruction of the CBD was noted. Patient did have an elevated ferritin. Some send out labs are pending. Follow-up with GI Time Spent with Patient Time attestation: Total time spent providing and/or coordinating discharge services: Exam Narrative: Patient is sitting in a stretcher in semi upright position Const: General: comfortable, no acute distress, well developed, alert, awake and average body habitus Nutritional Appearance: average body habitus Orientation/consciousness: patient oriented x3 Other: Jaundiced HENMT: Head: normal to inspection, normocephalic and atraumatic Ears: hearing grossly normal bilaterally Face/Nose/Sinus: normal facial exam Face and sinus: normal facial exam Eyes: General: appearance normal, both eyes and all related structures Sclera: scleral abnormality bilateral (Icterus) Pupils: Equal, round and reactive pupils present EOM: EOMs intact bilaterally Neck: Neck: full ROM, no lymphadenopathy and no JVD Thyroid: thyroid normal Lymphatic: no lymphadenopathy noted Resp: Effort & Inspection: normal respiratory effort and able to speak in complete sentences Auscultation: clear to auscultation bilaterally Cardio: Jugular venous distension: no JVD Rate: regular rate Rhythm: regular rhythm Heart sounds: S1 normal heart sound present and S2 normal heart sound present : General: Yes deferred Skin: Rashes: no rashes Wounds: no wounds Neuro: General: patient oriented x3 and CN's II-XI intact bilaterally Cranial nerves: Yes CN's II-XII intact bilaterally and Yes Equal, round and reactive pupils present Cognition (Neuro): normal cognition Speech: normal speech Gait exam (Neuro): Normal gait present Motor exam (neuro): 5/5 motor strength present throughout Sensory Exam: No Sensory deficit (Neuro) Extrem: General: normal to inspection, full ROM, no joint enlargement and no pedal edema DS: Data Data Completed and Pending Labs on day of discharge: Labs from last 24 hours 10/04/22 10/04/22 10/03/22 08:22 08:22 13:05 % Saturation Ferritin Total Bilirubin 3.8 H Direct Bilirubin 0.4 H AST 106 H ALT 276 H Alkaline Phosphatase 337 H Total Protein 8.0 Albumin 4.4 Ceruloplasmin KUSUM Screen Pending Mitochondria M2 IgG Ab Pending Liver/Kid Microsomes Ab EBV Capsid Ag IgG Ab EBV Capsid Ag IgM Ab EBV Nucl Ag IgG Sig Str EBV Nuc Ag IgG Interp Monoscreen Her Hemochromatosis PCR 10/03/22 10/03/22 10/03/22 13:05 13:05 13:05 % Saturation Ferritin Total Bilirubin Direct Bilirubin AST ALT Alkaline Phosphatase Total Protein Albumin Ceruloplasmin Pending KUSUM Screen Mitochondria M2 IgG Ab Liver/Kid Microsomes Ab Pending EBV Capsid Ag IgG Ab Pending EBV Capsid Ag IgM Ab Pending EBV Nucl Ag IgG Sig Str Pending EBV Nuc Ag IgG Interp Pending Monoscreen Her Hemochromatosis PCR 10/03/22 10/03/22 10/03/22 13:05 08:38 06:02 % Saturation 26 Ferritin 1200.
[2022-10-06 11:49] LABS: LKM 1 Antibody <=20.0 U (<=20.0)
[2022-10-07 04:53] LABS: CA 19-9 256 U/mL (<34)
[2022-10-07 11:08] LABS: Ceruloplasmin 31 mg/dL (18-36)
[2022-10-07 12:51] LABS: EBV Nuclear Ab Interpretation Past; EBV Virus Capsid Ag IgM Ab <36.00 U/mL (<36.00)
[2022-10-08 10:47] LABS: Mitochondrial (M2) Ab (IgG) <=20.0 U (<=20.0)
== END 2022-10-04 11:55 | disposition home or self-care (01) ==
LOC: ANHED 22:05 → ANH3MEDSUR 22:58
PROVIDERS: Emergency Medicine; Internal Medicine Gastroenterology; Admitting Provider Internal Medicine; Emergency Provider Emergency Medicine; PCP Physician Assistant; Visit Provider Chiropractor
DX: E80.6 Other disorders of bilirubin metabolism (principal); R74.8 Abnormal levels of other serum enzymes; K76.0 Fatty (change of) liver, not elsewhere classified; G47.33 Obstructive sleep apnea (adult) (pediatric); Z99.89 Dependence on other enabling machines and devices; R79.89 Other specified abnormal findings of blood chemistry; E66.3 Overweight; Z68.30 Body mass index [BMI] 30.0-30.9, adult; F10.90 Alcohol use, unspecified, uncomplicated; Z79.899 Other long term (current) drug therapy
CPT/HCPCS: 36415; 74177; 74183; 76376; 76705; 80048; 80053; 80074; 80076; 81001; 81256; 82390; 82728; 83520; 83540; 83550; 83605; 83690; 85025; 85610; 85730; 86038; 86301; 86308; 86376; 86664; 86665; 99285; A9270; A9577; G0378; Q9967

== ENCOUNTER 2022-10-06 14:34 | Outpatient (CLI) | payer OTHER, SELFPAY ==
[2022-10-06 15:56] LABS: Alanine Aminotransferase 209 U/L (6-50); Albumin Level 4.4 g/dL (3.5-5.1); Alkaline Phosphatase 271 U/L (38-126); Anion Gap 6 mmol/L (8-16); Aspartate Amino Transferase 85 U/L (17-59); Bilirubin,Total 1.9 mg/dL (0.2-1.3); Blood Urea Nitrogen 22 mg/dL (9-20); Carbon Dioxide 32 mmol/L (22-30); Chloride 96 mmol/L (98-107); Estimated Glomerular Filt Rate > 60; Glucose 288 mg/dL (65-110); Potassium 4.5 mmol/L (3.4-5.0); Sodium 134 mmol/L (137-145)
== END 2022-10-06 14:35 | disposition home or self-care (01) ==
LOC: ANHLAB 14:36
PROVIDERS: PCP Physician Assistant; Visit Provider Internal Medicine Gastroenterology
DX: E80.6 Other disorders of bilirubin metabolism (principal)
CPT/HCPCS: 36415; 80053